=== PATIENT | female | born 1945 | race Caucasian/White ===

== ENCOUNTER 2019-11-05 08:44 | Day surgery (SDC) | payer MEDICARE, MEDICAID, SELFPAY ==
[2019-11-04 10:51] VITALS: BMI 31.3
--- NOTE | 2019-11-05 08:53 | ANES.PREANE2 ---
Pre-Anesthetic Assessment Pre-Anesthetic Assessment: Height/Weight: Height 1.37 m Weight 58.967 kg Preop Diagnosis: Colon cancer Proposed Procedure: Operation Date: 11/05/19 10:30 Proposed Procedures p Colonoscopy(Not Applicable) - Steven Cotton MD Familial anesthetic complications: None Was Beta Marino taken within 24 hours: Yes Last intake: yesterday 10 pm Social: Social History: No alcohol and No tobacco Exam: Pre-Anes Outpt Exam: alert, oriented x 3, clear to auscultation bilaterally and regular rate & rhythm Airway: Cervical ROM: WNL MP: 2 Dentition: Partials Additional comments: missing Pulmonary: Pulmonary: COPD (2 L NC at night) CV/HEM: CV/HEM: HTN and LA (Unknown when this happened) : : None reported Hepatic: Hepatic: None reported GI: GI: None reported Metabolic: Metabolic: None reported Musc/skel: Musc/skel: None reported Neuropsych: Neuropsych: CVA (Unknown time when this occured (says she passed out 5-6 years ago in her sons basement and they told her she'd had a stroke)before)) and None reported Anesthetic Plan: ASA status: 3 Anesthesia: MAC Risk of > 500 ml blood loss (7ml/kg in children): No PFSH Anesthesia PFSH: Social History (Updated 11/04/19 @ 10:10 by Eleanor Banda) Smoking and tobacco status: never smoked Alcohol intake: never Substance/Drug Use: never Data Anesthesia Cardiac Studies: No Data to Display
--- NOTE | 2019-11-05 09:11 | P.HP_ITS ---
Same Day Surgery H&P Indication for Procedure/HPI DATE OF PROCEDURE: November 05, 2019 CHIEF COMPLAINT/INDICATIONFOR SURGICAL PROCEDURE: Personal history of colon cancer PREOP DIAGNOSIS: Colon cancer PLANNED PROCEDRUE: Operation Date: 11/05/19 10:30 Proposed Procedures p Colonoscopy(Not Applicable) - Steven Cotton MD Medications/Allergies* Home Medications Medication Instructions Recorded Confirmed Type alendronate 70 mg PO Q7D 11/04/19 11/04/19 History amlodipine 5 mg PO DAILY 11/04/19 11/04/19 History citalopram 20 mg PO DAILY 11/04/19 11/04/19 History doxepin 50 mg PO DAILY 11/04/19 11/04/19 History metoprolol succinate 50 mg PO DAILY 11/04/19 11/04/19 History nabumetone 750 mg PO BID 11/04/19 11/04/19 History oxybutynin chloride 5 mg PO BID 11/04/19 11/04/19 History ranitidine HCl 150 mg PO BID 11/04/19 11/04/19 History roflumilast [Daliresp] 500 mcg PO DAILY 11/04/19 11/04/19 History ropinirole 0.5 mg PO BEDTIME 11/04/19 11/04/19 History trazodone 150 mg PO BEDTIME 11/04/19 11/04/19 History triamcinolone acetonide 1 applic TOPICAL DAILY 11/04/19 11/04/19 History umeclidinium-vilanterol [Anoro 1 inh INHALATION BID 11/04/19 11/04/19 History Ellipta] Allergies/Adverse Reactions Allergy/AdvReac Type Severity Reaction Status Date / Time tetanus toxoid, adsorbed Allergy Unknown Verified 11/04/19 09:56 Pertinent History/Comorbid Conditions* Social History Smoking and tobacco status: never smoked Alcohol intake: never Substance/Drug Use: never Pertinent Exam Findings alert, oriented x 3, clear to auscultation bilaterally, regular rate & rhythm, operative site marked and procedure specific exam findings Recommendations Surgery/Procedure today Coding Level of Care Code Acute Employment Evaluator/Case Manager for Ann Plascencia
[2019-11-05 09:33] VITALS: BP 170/130; PULSE 125; RESP 22; TEMP 36.8; O2SAT 97
--- NOTE | 2019-11-05 09:38 | ECG_ITS ---
Measurements Intervals [place] Rate: 112 P: VT: 0 QRS: 75 QRSD: 153 T: -3 QT: 329 QTc: 449 ATRIAL FIBRILLATION WITH RAPID VENTRICULAR RESPONSE WITH ABERRANT CONDUCTION OR PALLAVI VENTRICULAR PREMATURE COMPLEXES RIGHT BUNDLE BRANCH BLOCK [120+ ms QRS DURATION, UPRIGHT V1, 40+ ms S IN I/ I/aVL/V4/V5/V6] No previous ECG available for comparison Electronically Signed On 11-05-2019 14:15:53 CLINICAL NUTRITIONIST by Miguelito Petty M.D. [email or web address]
[2019-11-05 09:42] VITALS: BP 154/91; PULSE 104; O2SAT 97
[2019-11-05] MEDS: sodium chloride 0.9% 1,000 ML 30 ML (09:42)
[2019-11-05] MEDS: labetalol 5 mg/mL SDV 20mL IVP (10:03)
[2019-11-05 10:10] VITALS: BP 149/104; PULSE 97
[2019-11-05 10:37] VITALS: BP 131/99; PULSE 106; RESP 16; TEMP 36.2; O2SAT 96
[2019-11-05 10:48] VITALS: BP 124/75; PULSE 101; RESP 18; O2SAT 97
[2019-11-05] MEDS: metoprolol succinate ER (24 HR) 50 mg Tablet PO (11:07)
[2019-11-05 11:09] VITALS: BP 116/76; PULSE 86; RESP 18; O2SAT 100
== END 2019-11-05 11:43 | disposition home or self-care (01) ==
PROVIDERS: Family Provider Family Medicine; PCP Urology; Visit Provider Internal Medicine
PROC: 0DJD8ZZ Inspection of Lower Intestinal Tract, Via Natural or Artificial Opening Endoscopic (ICD-10-PCS; CPT 45378; principal; 2019-11-05 10:30)
DX: Z85.038 Personal history of other malignant neoplasm of large intestine (principal); D12.3 Benign neoplasm of transverse colon; K63.89 Other specified diseases of intestine; K57.30 Diverticulosis of large intestine without perforation or abscess without bleeding; J44.9 Chronic obstructive pulmonary disease, unspecified; I10 Essential (primary) hypertension; I25.2 Old myocardial infarction; Z86.73 Personal history of transient ischemic attack (TIA), and cerebral infarction without residual deficits
CPT/HCPCS: 12345; 45380; 88305; 93005; J2704; J3490; J7030

== ENCOUNTER 2019-11-15 14:34 | Outpatient (CLI) | payer MEDICARE, MEDICAID, SELFPAY ==
--- NOTE | 2019-11-15 | XR_ITS ---
WS: [id number] RIGHT KNEE: 3 VIEW(S) TECHNIQUE: AP, oblique(s) and lateral. HISTORY: Chronic knee pain. COMPARISON: 11/23/2018 No fracture or dislocation. Mild valgus deformity at the knee joint. Moderate to severe tricompartment osteoarthritis. Joint spac e narrowing or osteophytes. No erosions. No joint effusion. Extensive arterial calcifications. XR/XR knee RT 3V* [id number] IMPRESSION: 1. Tricompartment moderate to severe osteoarthritis. No progression since 11/23. 2. Osteopenia.
--- NOTE | 2019-11-15 | XR_ITS ---
WS: [id number] Upright AP knees. HISTORY: Knee pain. COMPARISON: 11/23/2018. Moderate narrowing of the medial lateral compartment of the RIGHT knee. Cortical thickening involving the proximal tibia may be from an old fracture with healing. No acute injury. Mild valgus deformity. XR/[place] [id number] IMPRESSION: Moderate to severe joint space narrowing medial and lateral compartments of the RIGHT knee.
== END 2019-11-15 14:35 | disposition home or self-care (01) ==
LOC: RADOUTREAD 11-16 07:27
PROVIDERS: Family Provider Family Medicine; PCP Urology; Visit Provider Physician Assistant
DX: Z01.89 Encounter for other specified special examinations (principal)

== ENCOUNTER 2020-04-26 11:45 | Outpatient (CLI) | payer MEDICARE, MEDICAID, SELFPAY ==
--- NOTE | 2020-04-26 11:54 | MM_ITS ---
WS: [id number] BILATERAL DIGITAL SCREENING MAMMOGRAPHY WITH CAD CLINICAL INFORMATION: SCREENING HISTORY: Screening mammogram. No current complaints. COMPARISON: TECHNIQUE: Bilateral CC and MLO views. FINDINGS: History of bilateral breast reduction. Scattered fibroglandular densities bilaterally. No suspicious focal mass, asymmetry, calcifications, or architectural distortion. No evidence of malignancy. Vascular calcifications. Stable 6 mm nodule r ight breast unchanged. MM/[id number] IMPRESSION: BI-RADS: 2-Benign FOLLOW UP: 1 Year Follow-up Recommend return to annual screening mammography.
== END 2020-04-26 11:46 | disposition home or self-care (01) ==
LOC: RADSHAW 11:49
PROVIDERS: PCP Physician Assistant; Visit Provider Physician Assistant
DX: Z12.31 Encounter for screening mammogram for malignant neoplasm of breast (principal)
CPT/HCPCS: 77067

== ENCOUNTER → 2021-01-15 13:48 | Outpatient (BNVA) | payer MEDICARE, MEDICAID, SELFPAY | PROVIDERS: PCP Physician Assistant; Visit Provider Nurse Practitioner Family | DX: N39.0 Urinary tract infection, site not specified (principal); N32.81 Overactive bladder | CPT/HCPCS: 81003 ==

== ENCOUNTER 2021-01-23 09:38 | Outpatient (CLI) | payer MEDICARE, MEDICAID, SELFPAY ==
[2021-01-23 10:07] VITALS: BMI 32.5
--- NOTE | 2021-01-23 10:14 | NMCV_ITS ---
NM brian perf SPECT r/s* [id number] Lexis Montaño Age: 75 Gender: F : 1945 Exam Date: 01/23/2021 11:06 Ordering Phys: Viet Otoole MD ([email or web address]) Technologist: RO Bose Exam Location: [facility] Indications: SOB STRESS TEST Please see separate stress test report in [facility] for full findings IMAGE PROTOCOL Rest/Stress 1 Lexiscan Day Radiopharmaceutical Dose (mCi) Administration Site Administered by Rest: Tc-99m 10.6 IV RO Bose Sestamibi Stress:Tc-99m 32.5 IV RO Muñoz Sestamibi Rest: 23-Jan-2021 60 Discovery 630 Stress: 23-Jan-2021 30 Discovery 630 0.4mg Lexiscan. Images obtained in supine and prone position. SPECT RESULTS Technical Quality: Excellent Raw Data Analysis: Normal Image Corrections: No attenuation or motion correction applied Summed Stress Score: 0 Summed Rest Score: 0 Summed Difference Score: 0 PERFUSION FINDINGS Uniform myocardial tracer uptake with no significant perfusion abnormalities FUNCTIONAL RESULTS (calculated via Gated SPECT) Stress Image LV EF (%): 86 Stress EDV (mL):50 TID: 1.04 Stress ESV (mL):7 FUNCTIONAL FINDINGS: Segmental wall motion analysis revealing no gross wall motion normalities IMPRESSIONS 1. Unremarkable myocardial perfusion imaging 2. Normal LV ejection fraction of 86%. 3. LV wall motion analysis revealing no gross wall motion normalities. 4. Normal LV volume. No significant coronary ischemia, based on the above findings Dr Viet Otoole MD FAC (Electronically Signed) Final Date: 23 Jan 2021 18:55 S
--- NOTE | 2021-01-23 10:14 | ECG_ITS ---
[facility] Test Date: 2021-01-23 Pat Name: Lexis Montaño Department: Room: Gender: Female School Health Aide: : 1945 Requested By: Viet Otoole Order Number: [id number] Teena MD: Viet Otoole M.D. Interpretive Statements NAME OF STUDY: LEXISCAN SESTAMIBI STRESS TEST INDICATION: Shortness of Breath PROCEDURE: At the baseline, the EKG revealed normal sinus rhythm with right bundle branch block pattern. The baseline blood pressure was mm Hg with a heart rate of beats/min. Lexiscan was infused over a period of 20 seconds. A total of 0.4 milligrams of Lexiscan was infused. The stress phase was continued for a total of 5 minutes. Heart rate at the end of the stress phase was 99 with a blood pressure 136/73. The EKG at the peak infusion revealed no significant changes. Sestamibi was injected 20 seconds after the Lexiscan infusion. Blood pressure at the end of the recovery phase was 131/72 with a heart rate of 86 per minute. CONCLUSION: 1. No significant EKG changes with the LexiScan infusion 2. No LexiScan induced chest pain or cardiac arrhythmia 3. Normal blood pressure and heart rate response 4. Sestamibi/sestamibi perfusion scan pending; see separate report. Electronically Signed On 01-25-2021 18:42:27 CDT by Viet Otoole M.D. [id number]
[2021-01-23] MEDS: regadenoson 0.4 Mg/5 ml Syringe IVP (11:38)
[2021-01-23 11:51] VITALS: BP 131/72; PULSE 96
== END 2021-01-23 09:39 | disposition home or self-care (01) ==
PROVIDERS: PCP Physician Assistant; Visit Provider Internal Medicine Cardiovascular Disease
DX: R06.02 Shortness of breath (principal)
CPT/HCPCS: 78452; 93017; A9500; J2785

== ENCOUNTER 2021-06-01 14:28 | Outpatient (CLI) | payer MEDICARE, MEDICAID, SELFPAY ==
--- NOTE | 2021-06-01 14:34 | MM_ITS ---
WS: [id number] BILATERAL SCREENING DIGITAL MAMMOGRAM WITH CAD HISTORY: SCREENING COMPARISON: 04/26/2020 and 12/09/2018 Bilateral CC and MLO views submitted. Computer aided detection analyzed. Breast composition: There are scattered areas of fibroglandular density. No suspicious masses, microc alcifications or architectural distortion. Stable 8 mm high density nodule 9:00 RIGHT breast. MM/[id number] IMPRESSION: BI-RADS: 2-Benign FOLLOW UP: 1 Year Follow-up
== END 2021-06-01 14:29 | disposition home or self-care (01) ==
LOC: RADSHAW 14:32
PROVIDERS: PCP Physician Assistant; Visit Provider Physician Assistant
DX: Z12.31 Encounter for screening mammogram for malignant neoplasm of breast (principal)
CPT/HCPCS: 77067

== ENCOUNTER → 2021-07-18 15:25 | Outpatient (BNVA) | payer MEDICARE, MEDICAID, SELFPAY | PROVIDERS: PCP Physician Assistant; Visit Provider Nurse Practitioner Family | DX: N39.0 Urinary tract infection, site not specified (principal); N32.81 Overactive bladder | CPT/HCPCS: 81003 ==

== ENCOUNTER 2021-09-11 10:48 | Outpatient (CLI) | payer MEDICARE, MEDICAID, SELFPAY ==
--- NOTE | 2021-09-11 10:57 | USCV_ITS ---
Lexis Montaño Age: 76 Gender: F : 1945 Exam Date: 09/11/2021 11:20 Ordering Phys: Viet Otoole MD ([email or web address]) Technologist: Valorie Llamas [place] [facility] [place]ication: SOB AND CP BP: 138 / 84 HR: 88 Rhythm: Atrial fibrillation Technical Quality: Technically difficult study MEASUREMENTS (Male / Female) Normal Values 2D ECHO LV Diastolic Diameter PLAX 3.5 cm 4.2 - 5.9 / 3.9 - 5.3 cm LV Systolic Diameter PLAX 2.8 cm IVS Diastolic Thickness 1.3 cm 0.6 - 1.0 / 0.6 - 0.9 cm IVS Systolic Thickness 2.1 cm LVPW Diastolic Thickness 1.3 cm 0.6 - 1.0 / 0.6 - 0.9 cm LVPW Systolic Thickness 1.9 cm LVOT Diameter 2.0 cm LV Ejection Fraction 2D Teich 40.9 % LV Ejection Fraction MOD 2C 54.9 % LV Ejection Fraction 2C AL 52.8 % LA Diameter 3.4 cm LA Width 3.4 cm LA Height 4.7 cm RA Width 3.6 cm RA Height 4.8 cm Aorta at Sinotubular Diameter 2.3 cm M-MODE Aortic Annulus Diameter 2.8 cm LA Ao Ratio MM 1.2 MV E Point Septal Separation 0.5 cm DOPPLER AV Peak Velocity 119.0 cm/s LVOT Peak Velocity 102.0 cm/s AV Area Cont Eq vti 2.7 cm squared AV Area Cont Eq pk 2.7 cm squared MV Peak Velocity 103.0 cm/s MV Area PHT 5.5 cm squared MV E' Velocity 54.0 cm/s Mitral E to MV E' Ratio 8.1 Mitral E to LV E' Lateral Ratio 8.2 Mitral E to LV E' Septal Ratio 8.1 TR Peak Velocity 304.0 cm/s TR Peak Gradient 37.0 mmHg TR Mean Velocity 217.2 cm/s TR Mean Gradient 21.3 mmHg TR Velocity Time Integral 74.2 cm TV Peak E Velocity 65.0 cm/s Right Atrial Pressure 3.0 mmHg Pulmonary Artery Systolic Pressu 40.0 mmHg PV Peak Velocity 106.0 cm/s RV Acceleration Time 0.1 s RV Ejection Time 0.3 s RV AcT/ET 0.3 FINDINGS Left Ventricle Normal left ventricular size and systolic function, EF 57 %. Mild left ventricular hypertrophy. No regional wall motion abnormalities. Right Ventricle The right ventricle is normal in size and function. Right Atrium Moderate increased right atrial size. Left Atrium Moderately increased left atrial size. Mitral Valve Mild mitral annular calcification. Mild mitral valve regurgitation. Aortic Valve Thickened aortic valve. Tricuspid Valve Vlhzpaoo-go-zduoto tricuspid valve regurgitation. Estimated pulmonary artery peak systolic pressure of 40 mmHg Pulmonic Valve Structurally normal pulmonic valve without significant stenosis. There is no pulmonic regurgitation. Pericardium Normal pericardium without effusion. Aorta Normal ascending aorta dimension. CONCLUSIONS Normal left ventricular size and systolic function, EF 57 %. Mild left ventricular hypertrophy. No regional wall motion abnormalities. Moderately increased left atrial size. Moderately increased right atrial size. The right ventricle is normal in size and function. Thickened aortic valve. Mild mitral annular calcification. Ocgnuqro-cq-uhthfq tricuspid valve regurgitation. Estimated pulmonary artery peak systolic pressure of 40 mmHg. There is no pericardial effusion. There are no intracardiac masses. Compared to the study from 12/30/2018, there may not be a significant change Dr Viet Otoole MD FACC (Electronically Signed) Final Date: 12 September 2021 19:12 S
== END 2021-09-11 10:49 | disposition home or self-care (01) ==
LOC: RAD 10:49
PROVIDERS: PCP Physician Assistant; Visit Provider Internal Medicine Cardiovascular Disease
DX: R06.02 Shortness of breath (principal); R07.89 Other chest pain; I08.3 Combined rheumatic disorders of mitral, aortic and tricuspid valves
CPT/HCPCS: 93306

== ENCOUNTER 2022-07-29 14:36 | Outpatient (CLI) | payer MEDICARE, MEDICAID, SELFPAY ==
--- NOTE | 2022-07-29 14:42 | MM_ITS ---
WS: [id number] BILATERAL 3D TOMOSYNTHESIS DIGITAL SCREENING MAMMOGRAPHY WITH CAD CLINICAL INFORMATION: SCREENING HISTORY: Screening mammogram. No current complaints. History of bilateral breast reduction COMPARISON: 2020 TECHNIQUE: Bilateral CC and MLO views. FINDINGS: Scattered fibroglandular densities bilaterally. Stable 6 mm ovoid nodule central RIGHT breast. No maggi picious focal mass, asymmetry, calcifications, or architectural distortion. No evidence of malignancy . Vascular calcification. MM/[id number] IMPRESSION: BI-RADS: 2-Benign FOLLOW UP: 1 Year Follow-up Recommend return to annual screening mammography.
== END 2022-07-29 14:37 | disposition home or self-care (01) ==
LOC: RAD 14:36
PROVIDERS: PCP Physician Assistant; Visit Provider Physician Assistant
DX: Z12.31 Encounter for screening mammogram for malignant neoplasm of breast (principal)
CPT/HCPCS: 77063; 77067

== ENCOUNTER → 2022-12-11 14:32 | Outpatient (BNVA) | payer MEDICARE, MEDICAID, SELFPAY | PROVIDERS: PCP Physician Assistant; Visit Provider Urology | DX: Z87.440 Personal history of urinary (tract) infections (principal); N32.81 Overactive bladder | CPT/HCPCS: 81003; 99213 ==

== ENCOUNTER → 2023-01-01 15:27 | Outpatient (BNVA) | payer MEDICARE, MEDICAID, SELFPAY | PROVIDERS: PCP Physician Assistant; Visit Provider Specialist | DX: M17.11 Unilateral primary osteoarthritis, right knee (principal); M21.061 Valgus deformity, not elsewhere classified, right knee | CPT/HCPCS: 73560; 73565; 99213 ==

== ENCOUNTER → 2023-01-22 15:17 | Outpatient (BNVA) | payer MEDICARE, MEDICAID, SELFPAY | PROVIDERS: PCP Physician Assistant; Visit Provider Specialist | DX: M17.11 Unilateral primary osteoarthritis, right knee (principal); M21.061 Valgus deformity, not elsewhere classified, right knee | CPT/HCPCS: 99214 ==

== ENCOUNTER 2023-06-06 13:32 | Emergency (ER) | payer MEDICARE, MEDICAID, SELFPAY ==
[2023-06-06 13:35] VITALS: BP 176/100; PULSE 91; RESP 16; TEMP 36.4; O2SAT 98; BMI 31.3
--- NOTE | 2023-06-06 18:12 | ED_ITS ---
HPI - Dental/Oral General: Chief complaint: Dental/Oral Stated complaint: dentist sent, infected tooth Time Seen by Provider: 06/06/23 17:59 History of Present Illness: Lexis is a pleasant 78-year-old female who presents to the emergency department with left mandibular dental infection. She reports that she has seen her dentist after doing 7 days of Augmentin. Her dentist gave her amoxicillin 875 p.o. twice daily to take for the next 10 days. After this he is planning on pulling the tooth that he believes is causing the pain in the left mandibular molar region. This morning she woke up and her left cheek was sort of puffy and it hurt to open her mouth. This has improved throughout the day. She has not noticed any fever and her facial swelling has resolved. She does not have any pain or swelling underneath her tongue or below her chin. Evidently, somebody told her to come to the emergency department to have a shot . Her dentist has already prescribed her something for pain medicine at home and has her on antibiotics. Fortunately, the dentist office is closed at this time so I could not reach out for more details. Review of Systems General: Reports: 10 or more systems reviewed and unremarkable except in HPI and below PFSH ED PFSH: Medical History Afib Arthritis Asthma Chronic back pain COPD (chronic obstructive pulmonary disease) Coronary artery disease Depression GERD (gastroesophageal reflux disease) History of restless legs syndrome History of jqmnfb-mi-gonabwjaa syndrome HTN (hypertension) Hx of basal cell carcinoma Hx of malignant neoplasm of colon Hx of myocardial infarction Hyperlipidemia Lung disease Osteoporosis Overactive bladder Recurrent UTI Surgical History History of partial surgical removal of colon 10in removed Hx of appendectomy Hx of cholecystectomy Hx of eye surgery Hx of hysterectomy one ovary spared. Performed due to heavy bleeding. Hx of knee surgery Hx of repair of rotator cuff Hx of rhinoplasty Hx of tonsillectomy Family History Mother Cancer Sister Cancer Chronic kidney disease (CKD) breast --- younger than 50 at diagnosis Grandmother Cancer Father CAD (coronary artery disease) Diabetes Brother CAD (coronary artery disease) Grandfather Diabetes Social History Smoking and tobacco status: never smoked Alcohol intake: never Substance/Drug Use: never Adopted: No Caregiver/support person: No Marital status: / Current occupational status: retired Current gender identity: Female Physical Exam Const: COMMON NORMALS: no limitations, alert and well nourished EXAM LIMITATIONS: no altered mental status HENMT: COMMON NORMALS: normocephalic, atraumatic, external ears normal and Normal external nose present HEAD & SCALP: normocephalic and atraumatic NOSE: Normal external nose present and Normal nares present EXTERNAL EAR: Yes external ears normal MOUTH: Normal oral and palatal mucosa present, lip normal, tongue normal, Normal salivary glands and ducts present and moist mucous membranes abnormal; no audible dysphonia, no drooling, no fetor hepaticus and no muffled voice TEETH & GINGIVA: Yes caries and Yes other (Dental cavities status post filling) TEETH & GINGIVA IMAGES: 1. Diffuse pain and tenderness through this region. Mild gingival erythema at the base of the teeth. No abscesses visible or palpable. OTHER: Sublingual space is normal. Salivary glands are normal to palpation. No facial swelling. No visible or palpable abscess. No submandibular or cervical adenopathy. Eye: COMMON NORMALS: EOMs intact bilaterally, conjunctivae normal and no scleral icterus CONJUNCTIVA: Yes conjunctivae normal Neck/C-Spine: GENERAL: Yes normal visual inspection and Yes trachea midline Neuro: COMMON NORMALS: moves all extremities, no focal motor deficits and no sensory deficits noted SENSORIUM/ORIENTATION: Yes alert SPEECH: speech normal Psych: COMMON NORMALS: mental status grossly normal, Normal thought process present, cooperative, normal affect and speech normal SPEECH: Yes normal speech THOUGHT PROCESS: Normal thought process present Skin: COMMON NORMALS: no rashes or lesions noted, turgor normal and no jaundice GENERAL SKIN EXAM: no rashes or lesions noted and turgor normal Course Vital Signs: Vital signs: Vital Signs Temperature 97.5 F L 06/06/23 13:35 Pulse Rate 91 06/06/23 13:35 Respiratory Rate 16 06/06/23 13:35 Blood Pressure 176/100 06/06/23 13:35 Pulse Oximetry 98 06/06/23 13:35 Oxygen Delivery Md thod Room Air 06/06/23 13:35 MDM - Dental/Oral Medical Decision Making Patient likely has a periapical abscess. It is also possible that she has some exposed nerve/dentin. She is already on amoxicillin 875 p.o. twice daily. I do not think IV antibiotics is warranted. Its not can provide any further benefit and may cause harm. We can give her a Toradol shot. No imaging is indicated at this time. Patient not in any distress unless you palpate directly over her left mandibular molars. She has [employer] and a sugary drink along with her. I will certified alcohol and drug counselor about oral care and try and reduce sugary beverages. She already has a dentist and has a planned follow-up for tooth extraction. No radiology studies performed this visit Discharge Plan Discharge Patient Disposition: Home Clinical Impression: Periapical abscess without sinus, Toothache Condition: Stable Prescriptions: Continued amoxicillin 875 mg tablet No Action ipratropium bromide 0.02 % solution 2.5 ml inhalation BID Perforomist 20 mcg/2 mL solution for nebulization 2 ml inhalation BID lisinopril 40 mg tablet 20 mg PO DAILY oxybutynin chloride 5 mg tablet 5 mg PO BID Qty: 60 6RF aspirin [Adult Aspirin Regimen] 81 mg tablet,delayed release (DR/EC) 81 mg PO DAILY betamethasone, augmented 0.05 % ointment 1 applic topical BID PRN (Reason: skin irritation) Qty: 45 1RF Rx Instructions: apply to affected area only doxepin 50 mg capsule 50 mg PO DAILY nabumetone 750 mg tablet 750 mg PO BID metoprolol succinate 50 mg tablet extended release 24 hr 50 mg PO DAILY alendronate 70 mg tablet 70 mg PO Q7D amlodipine 5 mg tablet 5 mg PO DAILY citalopram 20 mg tablet 20 mg PO DAILY triamcinolone acetonide 0.025 % cream 1 applic TOPICAL DAILY trazodone 150 mg tablet 150 mg PO BEDTIME ropinirole 0.5 mg tablet 0.5 mg PO BEDTIME Daliresp 500 mcg tablet 500 mcg PO DAILY Discharge Orders: Discharge ED (Routine); Ordered 06/06/23 Ordered By: Keyur Brandt Referrals: Valorie Kathleen PA [Primary Care Provider] - Patient Instructions: Dental Abscess (ED), Toothache (ED), Pain Management Activity Restrictions/Additional Instructions: Please continue amoxicillin 875 mg by mouth twice daily. Avoid sugary foods such as sodas, juices, Gatorade. [place] your teeth 3 times a day and use mouthwash in between. Take a probiotic from [employer]. Alternate Tylenol and ibuprofen for pain. You may apply an ice pack to the left cheek to help. As you have noted, your dentist intends to pull the tooth. Please follow-up as scheduled. If you have facial swelling, neck swelling, fever, or worsening symptoms call your dentist or return to the ER Coding Level of Care Code ED Criminal Justice Department Chair for Ann Plascencia
[2023-06-06] MEDS: ketorolac 30 mg/mL INJ 15 MG IM (18:17)
== END 2023-06-06 18:22 | disposition home or self-care (01) ==
PROVIDERS: Emergency Provider Emergency Medicine; PCP Physician Assistant
DX: K04.7 Periapical abscess without sinus (principal); Z79.82 Long term (current) use of aspirin; J44.9 Chronic obstructive pulmonary disease, unspecified; I25.10 Atherosclerotic heart disease of native coronary artery without angina pectoris; I10 Essential (primary) hypertension; Z85.038 Personal history of other malignant neoplasm of large intestine; I25.2 Old myocardial infarction; E78.5 Hyperlipidemia, unspecified
CPT/HCPCS: 96372; 99284; J1885

== ENCOUNTER 2023-06-20 12:15 | Emergency (ER) | payer MEDICARE, MEDICAID, SELFPAY ==
[2023-06-20 12:24] VITALS: BP 189/146; PULSE 96; RESP 16; TEMP 36.7; O2SAT 95; BMI 31.3
--- NOTE | 2023-06-20 16:12 | ED_ITS ---
HPI - Dental/Oral General: Chief complaint: Dental/Oral Stated complaint: tooth pain, sent by dentist Time Seen by Provider: 06/20/23 12:47 Source: patient Mode of arrival: ambulatory Limitations: no limitations History of Present Illness: Patient presents to the emergency department today for complaints of left lower dental pain. Chart review shows patient has dealt chronically with issues in this area and has been seen and evaluated in this emergency department for the same previously. Patient has a dentist in [place]. She had previously been on Augmentin but, as the infection seem to return, was put on a 3-week course of amoxicillin. Patient states she is still on the medication. She has an appointment in 3 days to have the tooth pulled. Dentist has provided her pain medication and she indicates pain is controlled. She is concerned because she still has signs of infection. No reported difficulty swallowing or difficulty breathing. No fevers. Review of Systems General: Reports: 10 or more systems reviewed and unremarkable except in HPI and below PFSH ED PFSH: Medical History Afib Arthritis Asthma Chronic back pain COPD (chronic obstructive pulmonary disease) Coronary artery disease Depression GERD (gastroesophageal reflux disease) History of restless legs syndrome History of zemnye-fo-itzflyxzy syndrome HTN (hypertension) Hx of basal cell carcinoma Hx of malignant neoplasm of colon Hx of myocardial infarction Hyperlipidemia Lung disease Osteoporosis Overactive bladder Recurrent UTI Surgical History History of partial surgical removal of colon 10in removed Hx of appendectomy Hx of cholecystectomy Hx of eye surgery Hx of hysterectomy one ovary spared. Performed due to heavy bleeding. Hx of knee surgery Hx of repair of rotator cuff Hx of rhinoplasty Hx of tonsillectomy Family History Mother Cancer Sister Cancer Chronic kidney disease (CKD) breast --- younger than 50 at diagnosis Grandmother Cancer Father CAD (coronary artery disease) Diabetes Brother CAD (coronary artery disease) Grandfather Diabetes Social History Smoking and tobacco status: never smoked Alcohol intake: never Substance/Drug Use: never Adopted: No Caregiver/support person: No Marital status: / Current occupational status: retired Current gender identity: Female Physical Exam Const: COMMON NORMALS: no acute distress, patient oriented x3 and alert HENMT: OTHER: No signs of any significant facial swelling or redness to the face. Patient has a little bit of erythema and swelling noted in the posterior left lower jawline without signs of active draining. Patient has several capped teeth in this area. Mucous membranes are moist. Airway is patent. Eye: COMMON NORMALS: Equal, round and reactive pupils present, EOMs intact bilaterally and conjunctivae normal CONJUNCTIVA: Yes conjunctivae normal PUPIL: Yes Equal, round and reactive pupils present Neck/C-Spine: COMMON NORMALS: no JVD Lymph: LYMPHATIC: no lymphadenopathy noted Resp: COMMON NORMALS: normal respiratory effort, No retractions and No use of accessory muscles Cardio: COMMON NORMALS: no JVD and regular rate RATE: regular rate : COMMON NORMALS: Yes no CVA tenderness BLADDER/KIDNEY EXAM: Yes no CVA tenderness Back/Pelvis: COMMON NORMALS: no CVA tenderness, thoracic and lumbar spine normal to inspection and thoraco-lumbar ROM normal Extremity: COMMON NORMALS: normal to inspection, full ROM and no pedal edema Neuro: COMMON NORMALS: patient oriented x3 SENSORIUM/ORIENTATION: Yes alert Skin: COMMON NORMALS: no rashes or lesions noted and turgor normal GENERAL SKIN EXAM: no rashes or lesions noted and turgor normal Course Vital Signs: Vital signs: Vital Signs Temperature 98.1 F 06/20/23 12:24 Pulse Rate 96 06/20/23 12:24 Respiratory Rate 16 06/20/23 12:24 Blood Pressure 189/146 06/20/23 12:24 Pulse Oximetry 95 06/20/23 12:24 Oxygen Delivery Me thod Room Air 06/20/23 12:24 MDM - Dental/Oral Medical Decision Making Discussed with the patient that she is currently on appropriate antibiotic therapy and appears to be closely followed by her dentist. She has an appoi ntment in 3 days to have the tooth removed and I encouraged her to continue taking her antibiotics. As her pain seems to be controlled taking the pain medication provided by her dentist I encouraged her to continue using that as well. She should watch for fevers, difficulty swallowing or breathing. Otherwise, definitive treatment will only be achieved when she has the tooth pulled. Patient verbalized understanding and agreement to treatment plan. Differential Diagnosis Likely dental caries and toothache; Unlikely gingival abscess, dental abscess, fracture of tooth or aphthous ulcer No radiology studies performed this visit Discharge Plan Discharge Patient Disposition: Home Clinical Impression: Chronic dental infection Condition: Stable Prescriptions: New nystatin 100,000 unit/gram cream 1 applic topical BID Qty: 30 0RF No Action ipratropium bromide 0.02 % solution 2.5 ml inhalation BID Perforomist 20 mcg/2 mL solution for nebulization 2 ml inhalation BID lisinopril 40 mg tablet 20 mg PO DAILY oxybutynin chloride 5 mg tablet 5 mg PO BID Qty: 60 6RF aspirin [Adult Aspirin Regimen] 81 mg tablet,delayed release (DR/EC) 81 mg PO DAILY betamethasone, augmented 0.05 % ointment 1 applic topical BID PRN (Reason: skin irritation) Qty: 45 1RF Rx Instructions: apply to affected area only doxepin 50 mg capsule 50 mg PO DAILY nabumetone 750 mg tablet 750 mg PO BID metoprolol succinate 50 mg tablet extended release 24 hr 50 mg PO DAILY alendronate 70 mg tablet 70 mg PO Q7D amlodipine 5 mg tablet 5 mg PO DAILY citalopram 20 mg tablet 20 mg PO DAILY triamcinolone acetonide 0.025 % cream 1 applic TOPICAL DAILY trazodone 150 mg tablet 150 mg PO BEDTIME ropinirole 0.5 mg tablet 0.5 mg PO BEDTIME Daliresp 500 mcg tablet 500 mcg PO DAILY amoxicillin 875 mg tablet Discharge Orders: Discharge ED (Routine); Ordered 06/20/23 Ordered By: Mavis Scott Referrals: Valorie Kathleen PA [Primary Care Provider] - Discharge Diet: Usual diet Discharge Activity: Increase activity as tolerated Patient Instructions: Toothache (ED) Activity Restrictions/Additional Instructions: Appears you are currently on antibiotics to treat your dental infection. It appears you have been on antibiotics now for approximately 1 month. I do not think changing her antibiotics at this time will make any difference in improvement of the infection at this time but, you need to keep your upcoming appointment on Friday for the dental extraction as I think that will be the only way definitive treatment of your tooth ache and recurrent infections will be resolved. Continue to take the pain medication your dentist has given you through the weekend to help with discomfort. As we discussed, chronic use of antibiotics can cause several issues including GI upset, diarrhea, and yeast infections. As you indicated you are experiencing some discomfort in the vulvovaginal region I provided you some nystatin cream which you can apply twice a day to help combat yeast infection. Coding Level of Care Code ED Screen Repairer Crusher for Ann Plascencia
== END 2023-06-20 14:17 | disposition home or self-care (01) ==
PROVIDERS: Emergency Provider Physician Assistant; PCP Physician Assistant
DX: K04.7 Periapical abscess without sinus (principal); Z79.82 Long term (current) use of aspirin; J44.9 Chronic obstructive pulmonary disease, unspecified; I25.10 Atherosclerotic heart disease of native coronary artery without angina pectoris; Z86.73 Personal history of transient ischemic attack (TIA), and cerebral infarction without residual deficits; I10 Essential (primary) hypertension; Z85.038 Personal history of other malignant neoplasm of large intestine; I25.2 Old myocardial infarction; E78.5 Hyperlipidemia, unspecified
CPT/HCPCS: 99283

== ENCOUNTER 2023-10-15 13:14 | Outpatient (CLI) | payer MEDICARE, MEDICAID, SELFPAY ==
--- NOTE | 2023-10-15 13:23 | USCV_ITS ---
Lexis Montaño Age: 78 Gender: F : 1945 Exam Date: 10/15/2023 13:56 Ordering Phys: Valorie Kathleen Technologist: VALENTINA [place] [facility] [place] CHRONIC A FIB BP: 126 / 84 HR: 70 Rhythm: Sinus Technical Quality: Adequate MEASUREMENTS (Male / Female) Normal Values 2D ECHO LVOT Diameter 1.7 cm LV Ejection Fraction MOD 2C 63.5 % LV Ejection Fraction 2C AL 67.0 % LA Diameter 4.0 cm LA Width 3.3 cm LA Height 6.0 cm RA Width 4.0 cm RA Height 5.2 cm Aorta at Sinotubular Diameter 2.6 cm IVC Diameter 1.5 cm M-MODE Aortic Annulus Diameter 2.6 cm LA Ao Ratio MM 1.6 MV E Point Septal Separation 0.3 cm DOPPLER AV Peak Velocity 102.0 cm/s LVOT Peak Velocity 79.0 cm/s AV Area Cont Eq vti 2.0 cm squared AV Area Cont Eq pk 1.8 cm squared MV Peak Velocity 102.0 cm/s MV Area PHT 4.6 cm squared MV E' Velocity 53.5 cm/s Mitral E to MV E' Ratio 9.5 Mitral E to LV E' Lateral Ratio 9.1 Mitral E to LV E' Septal Ratio 10.1 TR Peak Velocity 249.4 cm/s TR Peak Gradient 24.9 mmHg TR Mean Velocity 243.9 cm/s TR Mean Gradient 24.0 mmHg TR Velocity Time Integral 90.4 cm TV Peak E Velocity 71.0 cm/s Right Atrial Pressure 3.0 mmHg Pulmonary Artery Systolic Pressu 27.9 mmHg PV Peak Velocity 107.0 cm/s RV Acceleration Time 0.1 s RV Ejection Time 0.3 s RV AcT/ET 0.2 FINDINGS Left Ventricle Normal left ventricular size and systolic function, EF 66 %. No regional wall motion abnormalities. Right Ventricle The right ventricle is normal in size and function. Right Atrium Mildly increased right atrial size. Left Atrium Moderately increased left atrial size. Mitral Valve Trace to mild mitral valve regurgitation. Aortic Valve Thickened aortic valve. Tricuspid Valve Moderate tricuspid valve regurgitation. Estimated pulmonary artery peak systolic pressure of 34 mmHg Pulmonic Valve Mild pulmonary valve regurgitation. Pericardium Normal pericardium without effusion. Aorta Normal ascending aorta dimension. IVC Normal inferior vena cava. CONCLUSIONS Normal left ventricular size and systolic function, EF 66 %. No regional wall motion abnormalities. Moderately increased left atrial size. Mildly increased right atrial size. Trace to mild mitral valve regurgitation. Thickened aortic valve. Moderate tricuspid valve regurgitation. Estimated pulmonary artery peak systolic pressure of 34 mmHg. Mild pulmonary valve regurgitation. There is no pericardial effusion. There are no intracardiac masses. Compared to the study from 09/11/2021, there may not be a significant change Dr Viet Otoole MD [facility] (Electronically Signed) Final Date: 02 November 2023 21:49 S
== END 2023-10-15 13:15 | disposition home or self-care (01) ==
LOC: RAD 13:15
PROVIDERS: PCP Physician Assistant; Visit Provider Family Medicine
DX: I48.20 Chronic atrial fibrillation, unspecified (principal); I08.8 Other rheumatic multiple valve diseases
CPT/HCPCS: 93306

== ENCOUNTER 2023-11-27 16:41 | Inpatient (IN) | payer MEDICARE, MEDICAID, SELFPAY ==
[2023-11-27] VITALS (11 sets, daily range): BP systolic 129–163; BP diastolic 73–121; PULSE 81–122; RESP 14–18; TEMP 36.3–37.1; O2SAT 90–98; BMI 31.3
--- NOTE | 2023-11-27 16:51 | XRR_ITS ---
PROCEDURE INFORMATION: Exam: XR Right Hip Exam date and time: 11/27/2023 5:24 PM Age: 78 years old Clinical indication: Injury or trauma; Fall; Other: Unknown TECHNIQUE: Imaging protocol: Radiologic exam of the right hip. Views: 1 view hip with pelvis when performed. COMPARISON: No relevant prior studies available. FINDINGS: Bones/joints: Suspected intertrochanteric hip fracture. Soft tissues: Unremarkable. XR/XR hip RT 2-3V wo/w pel* [id number] IMPRESSION: Suspected intertrochanteric hip fracture. Would recommend CT for confirmation.
--- NOTE | 2023-11-27 17:05 | W.ED.EXTPRO ---
HPI - Extremity Problem General: Chief complaint: Extremity Injury, Lower Stated complaint: fall Time Seen by Provider: 11/27/23 16:44 Source: patient and EMS Mode of arrival: EMS Limitations: no limitations History of Present Illness: 78-year-old female who states that she tripped and fell just prior to arrival. States she landed on her right hip has right hip pain. She denies really any pain elsewhere she rates the pain in her hip a 7 out of 10 is much worse with movement improved with rest. She denies any loss of consciousness. Associated symptoms: Deny chest pain, fever(s) or rash Review of Systems Const: Denies: fever(s) or chills ENMT: Denies: throat pain or dental pain Card: Denies: chest pain Resp: Denies: dyspnea GI: Denies: abdominal pain, nausea, vomiting or diarrhea Musc: Reports: extremity pain; Denies: neck pain or back pain Skin/Breast: Denies: rash Neuro: Denies: headache(s) PFSH ED PFSH: Medical History History of restless legs syndrome Afib Depression History of lkyqgs-wr-nozgihpmu syndrome Osteoporosis COPD (chronic obstructive pulmonary disease) Hyperlipidemia GERD (gastroesophageal reflux disease) Lung disease Hx of malignant neoplasm of colon Hx of basal cell carcinoma HTN (hypertension) Asthma Chronic back pain Coronary artery disease Arthritis Hx of myocardial infarction Recurrent UTI Overactive bladder Surgical History Hx of repair of rotator cuff Hx of eye surgery Hx of rhinoplasty History of partial surgical removal of colon 10in removed Hx of appendectomy Hx of cholecystectomy Hx of hysterectomy one ovary spared. Performed due to heavy bleeding. Hx of knee surgery Hx of tonsillectomy Family History Mother Cancer Sister Cancer Chronic kidney disease (CKD) breast --- younger than 50 at diagnosis Grandmother Cancer Father CAD (coronary artery disease) Diabetes Brother CAD (coronary artery disease) Grandfather Diabetes Social History Smoking and tobacco/nicotine status: never used tobacco/nicotine Alcohol intake: never Substance/Drug Use: never Adopted: No Caregiver/support person: No Marital status: / Current occupational status: retired Current gender identity: Female Physical Exam Const: COMMON NORMALS: no acute distress, patient oriented x3 and healthy appearing HENMT: COMMON NORMALS: normocephalic and atraumatic HEAD & SCALP: normocephalic and atraumatic Eye: COMMON NORMALS: Equal, round and reactive pupils present and EOMs intact bilaterally PUPIL: Yes Equal, round and reactive pupils present Neck/C-Spine: COMMON NORMALS: full ROM and supple CERVICAL SPINE: Yes cervical ROM normal and No Cervical spine tenderness Chest: COMMONS NORMALS: normal inspection of the chest Resp: COMMON NORMALS: normal respiratory effort, No retractions, No use of accessory muscles and clear to auscultation bilaterally AUSCULTATION: clear to auscultation bilaterally Cardio: COMMON NORMALS: regular rate, regular rhythm and No murmurs present (Cardio) RATE: regular rate RHYTHM: regular rhythm Extremity: NARRATIVE EXTREMITY EXAM: Tenderness noted over right hip distal pulses and sensation intact Neuro: COMMON NORMALS: patient oriented x3, moves all extremities and no focal motor deficits Psych: COMMON NORMALS: mental status grossly normal, Normal thought process present and cooperative THOUGHT PROCESS: Normal thought process present Skin: COMMON NORMALS: no rashes or lesions noted and no wounds GENERAL SKIN EXAM: no rashes or lesions noted Course Vital Signs: Vital signs: Vital Signs Temperature 98.1 F 11/27/23 16:44 Pulse Rate 85 11/27/23 16:44 Respiratory Rate 16 11/27/23 16:44 Blood Pressure 155/89 11/27/23 16:44 Pulse Oximetry 94 11/27/23 16:44 Oxygen Delivery Me thod Room Air 11/27/23 16:44 MDM - Extremity (Nontraumatic) Medical Decision Making Patient presents here with a right hip fracture from a fall no other signs of injury did speak to orthopedics along with hospitalist and will admit at this time. Medical Records I reviewed the patient's medical records. Lab Data I reviewed the patient's lab results. All radiology interpretation(s) finalized by discharge Discharge Plan Discharge Patient Disposition: Admitted As Inpatient Clinical Impression: Fracture of hip Condition: Stable Prescriptions: No Action ipratropium bromide 0.02 % solution 2.5 ml inhalation BID Perforomist 20 mcg/2 mL solution for nebulization 2 ml inhalation BID lisinopril 40 mg tablet 20 mg PO DAILY oxybutynin chloride 5 mg tablet 5 mg PO BID Qty: 60 6RF aspirin [Adult Aspirin Regimen] 81 mg tablet,delayed release (DR/EC) 81 mg PO DAILY betamethasone, augmented 0.05 % ointment 1 applic topical BID PRN (Reason: skin irritation) Qty: 45 1RF Rx Instructions: apply to affected area only doxepin 50 mg capsule 50 mg PO DAILY nabumetone 750 mg tablet 750 mg PO BID metoprolol succinate 50 mg tablet extended release 24 hr 50 mg PO DAILY alendronate 70 mg tablet 70 mg PO Q7D amlodipine 5 mg tablet 5 mg PO DAILY citalopram 20 mg tablet 20 mg PO DAILY triamcinolone acetonide 0.025 % cream 1 applic TOPICAL DAILY trazodone 150 mg tablet 150 mg PO BEDTIME ropinirole 0.5 mg tablet 0.5 mg PO BEDTIME Daliresp 500 mcg tablet 500 mcg PO DAILY amoxicillin 875 mg tablet nystatin 100,000 unit/gram cream 1 applic topical BID Qty: 30 0RF Referrals: Valorie Kathleen PA [Primary Care Provider] - Coding Level of Care Code ED Medical Research Scientist for Ann Plascencia
--- NOTE | 2023-11-27 18:21 | ANES.PREANE2 ---
Pre-Anesthetic Assessment Height/Weight: Height 1.37 m Weight 58.967 kg Temp Pulse Resp BP Pulse Ox O2 Del Method 98.1 F 85 16 155/89 94 Room Air 11/27/23 16:44 11/27/23 16:44 11/27/23 16:44 11/27/23 16:44 11/27/23 16:44 11/27/23 16:44 Familial anesthetic complications: None Was Beta Marino taken within 24 hours: Yes Was Clonidine taken within 24 hours: N/A Last intake: > 8 hrs Social No alcohol and No tobacco Exam alert, oriented x 3, clear to auscultation bilaterally and regular rate & rhythm Airway Mallampati: Class II Dentition: caps CV/HEM Atrial Fibrillation, Coronary Artery Disease (medically treated) and Hypertension Echo CONCLUSIONS Normal left ventricular size and systolic function, EF 66 %. No regional wall motion abnormalities. Moderately increased left atrial size. Mildly increased right atrial size. Trace to mild mitral valve regurgitation. Thickened aortic valve. Moderate tricuspid valve regurgitation. Estimated pulmonary artery peak systolic pressure of 34 mmHg. Mild pulmonary valve regurgitation. There is no pericardial effusion. There are no intracardiac masses. Compared to the study from 09/11/2021, there may not be a significant change Anesthetic Plan ASA status: 3 Anesthesia: General Risk of > 500 ml blood loss (7ml/kg in children): No Medications/Allergies Home Medications Medication Instructions Recorded Confirmed Last Taken Type alendronate 70 mg tablet 70 mg PO Q7D 11/04/19 02/13/23 11/02/19 History amlodipine 5 mg tablet 5 mg PO DAILY 11/04/19 02/13/23 11/05/19 History citalopram 20 mg tablet 20 mg PO DAILY 11/04/19 02/13/23 11/04/19 History doxepin 50 mg capsule 50 mg PO DAILY 11/04/19 02/13/23 11/04/19 History metoprolol succinate 50 mg 50 mg PO DAILY 11/04/19 02/13/23 11/04/19 09:00 History tablet,extended release 24 hr nabumetone 750 mg tablet 750 mg PO BID 11/04/19 02/13/23 11/04/19 History roflumilast 500 mcg tablet 500 mcg PO DAILY 11/04/19 02/13/23 11/04/19 History (Daliresp) ropinirole 0.5 mg tablet 0.5 mg PO BEDTIME 11/04/19 02/13/23 11/04/19 History trazodone 150 mg tablet 150 mg PO BEDTIME 11/04/19 02/13/23 11/04/19 History triamcinolone acetonide 0.025 % 1 applic topical DAILY 11/04/19 02/13/23 11/04/19 History topical cream aspirin 81 mg tablet,delayed 81 mg PO DAILY 12/14/20 02/13/23 Unknown History release (Adult Aspirin Regimen) formoterol fumarate 20 mcg/2 mL 2 ml inhalation BID 01/04/21 02/13/23 Unknown History solution for nebulization (Perforomist) ipratropium bromide 0.02 % 2.5 ml inhalation BID 01/04/21 02/13/23 Unknown History solution for inhalation lisinopril 40 mg tablet 20 mg PO DAILY 01/04/21 02/13/23 Unknown History oxybutynin chloride 5 mg tablet 5 mg PO BID #60 tabs 01/15/21 02/13/23 Unknown Rx betamethasone, augmented 0.05 % 1 applic topical BID PRN skin 01/07/23 02/13/23 Unknown Rx topical ointment irritation #45 grams amoxicillin 875 mg tablet mg 06/06/23 06/06/23 Unknown History nystatin 100,000 unit/gram topical 1 applic topical BID #30 grams 06/20/23 Unknown Rx cream Allergies Allergy/AdvReac Type Severity Reaction Status Date / Time tetanus toxoid, adsorbed Allergy Unknown Verified 11/27/23 16:48 PFS Anesthesia Medical History History of restless legs syndrome Afib Depression History of dzqhct-yg-cmeiqpwlg syndrome Osteoporosis COPD (chronic obstructive pulmonary disease) Hyperlipidemia GERD (gastroesophageal reflux disease) Lung disease Hx of malignant neoplasm of colon Hx of basal cell carcinoma HTN (hypertension) Asthma Chronic back pain Coronary artery disease Arthritis Hx of myocardial infarction Recurrent UTI Overactive bladder Surgical History Hx of repair of rotator cuff Hx of eye surgery Hx of rhinoplasty History of partial surgical removal of colon 10in removed Hx of appendectomy Hx of cholecystectomy Hx of hysterectomy one ovary spared. Performed due to heavy bleeding. Hx of knee surgery Hx of tonsillectomy Family History Mother Cancer Sister Cancer Chronic kidney disease (CKD) breast --- younger than 50 at diagnosis Grandmother Cancer Father CAD (coronary artery disease) Diabetes Brother CAD (coronary artery disease) Grandfather Diabetes Social History Smoking and tobacco/nicotine status: never used tobacco/nicotine Alcohol intake: never Substance/Drug Use: never Adopted: No Caregiver/support person: No Marital status: / Current occupational status: retired Current gender identity: Female Data Anesthesia Cardiac Studies: Echocardiogram 10/15/23 Sestamibi Stress Test (Cardiology) 01/23/21
[2023-11-27] MEDS: gabapentin 300 mg Capsule PO (18:37)
[2023-11-27] MEDS: CELEcoxib 200 mg Capsule 400 MG PO (18:38)
--- NOTE | 2023-11-27 18:41 | P.HP_ITS ---
Providers/Chief Complaint 2 Primary Care Provider: Valorie Kathleen Chief Complaint: fall History of Present Illness Lexis Montaño is a 78 year old female atrial fibrillation, not on anticoagulation, history of COPD, asthma, depression, GERD, hypertension, hyperlipidemia, who presents [facility] for fall, patient tells me that she lives at home by herself, she tells me that she has a loose fitting shoe, when she stepped out of the elevator, she tripped on her shoe, and fell, no significant head trauma, no loss of consciousness, patient was diagnosed with a hip fracture, she is adamant that she does not take a blood thinner for atrial fibrillation, she takes aspirin and she has not taken the aspirin in a few days, denies any any chest pain, no palpitations, no shortness of breath no history of CAD, no history of stenting, no history of stroke, no history of diabetes, denies a history of smoking Review of Systems 2 Card: Denies: chest pain Resp: Denies: dyspnea GI: Denies: abdominal pain : Denies: flank pain Neuro: Denies: headache(s) Medications/Allergies Home Medications Medication Instructions Recorded Confirmed Last Taken Type alendronate 70 mg tablet 70 mg PO Q7D 11/04/19 02/13/23 11/02/19 History amlodipine 5 mg tablet 5 mg PO DAILY 11/04/19 02/13/23 11/05/19 History citalopram 20 mg tablet 20 mg PO DAILY 11/04/19 02/13/23 11/04/19 History doxepin 50 mg capsule 50 mg PO DAILY 11/04/19 02/13/23 11/04/19 History metoprolol succinate 50 mg 50 mg PO DAILY 11/04/19 02/13/23 11/04/19 09:00 History tablet,extended release 24 hr nabumetone 750 mg tablet 750 mg PO BID 11/04/19 02/13/23 11/04/19 History roflumilast 500 mcg tablet 500 mcg PO DAILY 11/04/19 02/13/23 11/04/19 History (Daliresp) ropinirole 0.5 mg tablet 0.5 mg PO BEDTIME 11/04/19 02/13/23 11/04/19 History trazodone 150 mg tablet 150 mg PO BEDTIME 11/04/19 02/13/23 11/04/19 History triamcinolone acetonide 0.025 % 1 applic topical DAILY 11/04/19 02/13/23 11/04/19 History topical cream aspirin 81 mg tablet,delayed 81 mg PO DAILY 12/14/20 02/13/23 Unknown History release (Adult Aspirin Regimen) formoterol fumarate 20 mcg/2 mL 2 ml inhalation BID 01/04/21 02/13/23 Unknown History solution for nebulization (Perforomist) ipratropium bromide 0.02 % 2.5 ml inhalation BID 01/04/21 02/13/23 Unknown History solution for inhalation lisinopril 40 mg tablet 20 mg PO DAILY 01/04/21 02/13/23 Unknown History oxybutynin chloride 5 mg tablet 5 mg PO BID #60 tabs 01/15/21 02/13/23 Unknown Rx betamethasone, augmented 0.05 % 1 applic topical BID PRN skin 01/07/23 02/13/23 Unknown Rx topical ointment irritation #45 grams amoxicillin 875 mg tablet mg 06/06/23 06/06/23 Unknown History nystatin 100,000 unit/gram topical 1 applic topical BID #30 grams 06/20/23 Unknown Rx cream Allergies Allergy/AdvReac Type Severity Reaction Status Date / Time tetanus toxoid, adsorbed Allergy Unknown Verified 11/27/23 16:48 PFSH Acute 2 PFSH: Medical History (Updated 11/27/23 @ 18:45 by Hesham Mark MD) History of restless legs syndrome Afib Depression History of qkderb-pl-wyoknvkiv syndrome Osteoporosis COPD (chronic obstructive pulmonary disease) Hyperlipidemia GERD (gastroesophageal reflux disease) Lung disease Hx of malignant neoplasm of colon Hx of basal cell carcinoma HTN (hypertension) Asthma Chronic back pain Coronary artery disease Arthritis Hx of myocardial infarction Recurrent UTI Overactive bladder Surgical History Hx of repair of rotator cuff Hx of eye surgery Hx of rhinoplasty History of partial surgical removal of colon 10in removed Hx of appendectomy Hx of cholecystectomy Hx of hysterectomy one ovary spared. Performed due to heavy bleeding. Hx of knee surgery Hx of tonsillectomy Family History Mother Cancer Sister Cancer Chronic kidney disease (CKD) breast --- younger than 50 at diagnosis Grandmother Cancer Father CAD (coronary artery disease) Diabetes Brother CAD (coronary artery disease) Grandfather Diabetes Social History Smoking and tobacco/nicotine status: never used tobacco/nicotine Alcohol intake: never Substance/Drug Use: never Adopted: No Caregiver/support person: No Marital status: / Current occupational status: retired Current gender identity: Female Vitals/I&O/Wt Last Vital Signs Temp 98.1 F 11/27/23 16:44 Pulse 85 11/27/23 16:44 Resp 16 11/27/23 16:44 BP 155/89 11/27/23 16:44 Pulse Ox 94 11/27/23 16:44 O2 Del Method Room Air 11/27/23 16:44 Weight last 48 hrs Weight 58.967 kg Physical Exam 2 Const: COMMON NORMALS: no acute distress and patient oriented x3 Eye: COMMON NORMALS: Equal, round and reactive pupils present and EOMs intact bilaterally Resp: COMMON NORMALS: normal respiratory effort, No retractions, No use of accessory muscles and clear to auscultation bilaterally AUSCULTATION: clear to auscultation bilaterally Cardio: COMMON NORMALS: regular rate, regular rhythm, S1 normal heart sound present and S2 normal heart sound present RATE: regular rate RHYTHM: r egular rhythm HEART SOUNDS: S1 normal heart sound present and S2 normal heart sound present GI: COMMON NORMALS: Normal to inspection, nondistended, normoactive bowel sounds present, Soft to palpation and non-tender Extremity: COMMON NORMALS: no pedal edema Neuro: COMMON NORMALS: patient oriented x3 and CN's II-XII intact bilaterally Psych: COMMON NORMALS: mental status grossly normal Data 11/27/23 18:27 11/27/23 18:27 A&P Assessment and plan (1) Fracture of hip: Qualifiers: Encounter type: initial encounter Fracture type: closed Laterality: r ight Qualified Code(s): S72.001A - Fracture of unspecified part of neck of right femur, initial encounter for closed fracture (2) Benign essential hypertension, age 0-18: (3) Overactive bladder: (4) Recurrent UTI: (5) Dyslipidemia (high LDL; low HDL): (6) Afib: Plan Hip fracture -Pain control, and anticoagulation as per orthopedic team -Currently n.p.o., for surgical intervention today -Full code -scd for DVT prophylaxis -Atrial fibrillation, not on anticoagulation Hypertension, hold lisinopril, hold metoprolol History of COPD, Follow blood work, UA Attestations 2 Medical Necessity Statement*: Patient requires hospitalization, inpatient, greater than 2 minutes, for hip fracture Diagnoses Fracture of hip S72.001A Encounter type: initial encounter Fracture type: closed Laterality: right Benign essential hypertension, age 0-18 I10 Overactive bladder N32.81 Recurrent UTI N39.0 Dyslipidemia (high LDL; low HDL) E78.5 Afib I48.91
[2023-11-27 18:43] LABS: Basophils % 0.2 %; Eosinophils % 0.1 %; Hematocrit 42.8 % (36-47); Lymphocytes % 5.5 %; Mean Corpuscular HGB Conc 33.2 g/dL (30-55); Mean Corpuscular Hemoglobin 31.3 pg (27-33); Mean Corpuscular Volume 94.3 fl (85-98); Mean Platelet Volume 10.4 fL (7.4-10.4); Monocytes # 1.1 10^3/uL (0.2-0.9); Neutrophils % 87.5 %; Nucleated Red Blood Cells % 0 %; Platelet Count 178 10^3/cmm (157-399); Red Blood Count 4.54 10^6/uL (3.85-5.65); Red Cell Distribution Width 14.6 % (12.1-15.1)
[2023-11-27 18:48] LABS: INR 1.02 (0.8-1.2)
[2023-11-27 19:02] LABS: Add Urine Microscopic? NO; Charge for UA Resulting for Rev
[2023-11-27 19:02] LABS: Alanine Aminotransferase 18 U/L (0-33); Albumin Level 4.3 g/dL (3.5-5.2); Alkaline Phosphatase 87 U/L (35-105); Anion Gap 14.9 (5-19); Aspartate Amino Transferase 20 U/L (0-32); Blood Urea Nitrogen 22 mg/dL (8-23); Calcium 8.9 mg/dL (8.5-10.5); Carbon Dioxide 24 mmol/L (22-29); Chloride 106 mmol/L (98-107); Creatinine Clr Calc Pharmacy 54.8209; Glucose 143 mg/dL (65-115); Osmolality Calculated 298 mOsm/kg (285-295); Potassium 3.9 mmol/L (3.5-5.1); Sodium 141 mmol/L (136-145); Total Bilirubin 0.6 mg/dL (0.15-1.2); Total Protein 7.3 g/dL (6.6-8.7)
[2023-11-27 19:05] LABS: Lactic Sepsis W/Reflex 1.5 mmol/L (0.5-2.2)
--- NOTE | 2023-11-27 19:05 | P.CONIM_ITS ---
Providers/Reason For Consult 2 Consulting Phys[facility]/Specialty*: [facility] June Bravo MD -- orthopedics Reason for Consult*: Right hip intertrochanteric fracture of femur. Requiring surgical intervention. Attending Physician: Hesham Mark MD Primary Care Provider: Valorie Kathleen History of Present Illness History of Present Illness Lexis Montaño is a 78 year old female presents to [facility] through the emergency department, after trip and fall earlier this evening. Patient states that she has had significant pain in the right hip since her fall. She did not plan to come into the emergency department and delayed her evaluation as she thought she had just strained the hip . Pain became more severe and she presented for further evaluation. Denies pain location anywhere else. Denies loss of consciousness. Patient appears to be stable, with no acute medical concerns at this time. She denies any shortness of breath, chest pain, headache, lightheadedness, nausea, vomiting, blurred vision or other acute variations from normal. She does have complaints of right hip pain however, this is mild as long as there is no range of motion to the right hip. Review of Systems 2 Const: Denies: fever(s) or chills ENMT: Denies: throat pain or dental pain Card: Denies: chest pain Resp: Denies: dyspnea GI: Denies: abdominal pain, nausea, vomiting or diarrhea Musc: Reports: extremity pain, joint pain and limited range of motion; Denies: neck pain, back pain, joint redness or joint warmth Skin/Breast: Denies: rash Neuro: Denies: headache(s) Medications/Allergies Home Medications Medication Instructions Recorded Confirmed Last Taken Type alendronate 70 mg tablet 70 mg PO Q7D 11/04/19 02/13/23 11/02/19 History amlodipine 5 mg tablet 5 mg PO DAILY 11/04/19 02/13/23 11/05/19 History citalopram 20 mg tablet 20 mg PO DAILY 11/04/19 02/13/23 11/04/19 History doxepin 50 mg capsule 50 mg PO DAILY 11/04/19 02/13/23 11/04/19 History metoprolol succinate 50 mg 50 mg PO DAILY 11/04/19 02/13/23 11/04/19 09:00 History tablet,extended release 24 hr nabumetone 750 mg tablet 750 mg PO BID 11/04/19 02/13/23 11/04/19 History roflumilast 500 mcg tablet 500 mcg PO DAILY 11/04/19 02/13/23 11/04/19 History (Daliresp) ropinirole 0.5 mg tablet 0.5 mg PO BEDTIME 11/04/19 02/13/23 11/04/19 History trazodone 150 mg tablet 150 mg PO BEDTIME 11/04/19 02/13/23 11/04/19 History triamcinolone acetonide 0.025 % 1 applic topical DAILY 11/04/19 02/13/23 11/04/19 History topical cream aspirin 81 mg tablet,delayed 81 mg PO DAILY 12/14/20 02/13/23 Unknown History release (Adult Aspirin Regimen) formoterol fumarate 20 mcg/2 mL 2 ml inhalation BID 01/04/21 02/13/23 Unknown History solution for nebulization (Perforomist) ipratropium bromide 0.02 % 2.5 ml inhalation BID 01/04/21 02/13/23 Unknown History solution for inhalation lisinopril 40 mg tablet 20 mg PO DAILY 01/04/21 02/13/23 Unknown History oxybutynin chloride 5 mg tablet 5 mg PO BID #60 tabs 01/15/21 02/13/23 Unknown Rx betamethasone, augmented 0.05 % 1 applic topical BID PRN skin 01/07/23 02/13/23 Unknown Rx topical ointment irritation #45 grams amoxicillin 875 mg tablet mg 06/06/23 06/06/23 Unknown History nystatin 100,000 unit/gram topical 1 applic topical BID #30 grams 06/20/23 Unknown Rx cream Allergies Allergy/AdvReac Type Severity Reaction Status Date / Time tetanus toxoid, adsorbed Allergy Unknown Verified 11/27/23 16:48 PFSH Acute 2 PFSH: Medical History (Updated 11/27/23 @ 19:21 by JODI Saleem) Fall at home Closed intertrochanteric fracture of right hip History of restless legs syndrome Afib Depression History of krrzna-pq-iwqvxdxnv syndrome Osteoporosis COPD (chronic obstructive pulmonary disease) Hyperlipidemia GERD (gastroesophageal reflux disease) Lung disease Hx of malignant neoplasm of colon Hx of basal cell carcinoma HTN (hypertension) Asthma Chronic back pain Coronary artery disease Arthritis Hx of myocardial infarction Recurrent UTI Overactive bladder Surgical History Hx of repair of rotator cuff Hx of eye surgery Hx of rhinoplasty History of partial surgical removal of colon 10in removed Hx of appendectomy Hx of cholecystectomy Hx of hysterectomy one ovary spared. Performed due to heavy bleeding. Hx of knee surgery Hx of tonsillectomy Family History Mother Cancer Sister Cancer Chronic kidney disease (CKD) breast --- younger than 50 at diagnosis Grandmother Cancer Father CAD (coronary artery disease) Diabetes Brother CAD (coronary artery disease) Grandfather Diabetes Social History Smoking and tobacco/nicotine status: never used tobacco/nicotine Alcohol intake: never Substance/Drug Use: never Adopted: No Caregiver/support person: No Marital status: / Current occupational status: retired Current gender identity: Female Vitals/I&O/Wt Last Vital Signs Temp 98.1 F 11/27/23 16:44 Pulse 81 11/27/23 18:59 Resp 16 11/27/23 18:59 BP 155/89 11/27/23 16:44 Pulse Ox 96 11/27/23 18:59 O2 Del Method Room Air 11/27/23 18:48 Weight last 48 hrs Weight 130 lb Physical Exam 2 Const: COMMON NORMALS: no acute distress, average body habitus, patient oriented x3, no limitations, alert and well nourished GENERAL APPEARANCE: c ooperative; not anxious and not combative ORIENTATION/CONSCIOUSNESS: Yes awake, Yes oriented to person, Yes oriented to place and Yes oriented to time HENMT: COMMON NORMALS: normocephalic and atraumatic HEAD & SCALP: n ormocephalic and atraumatic Resp: COMMON NORMALS: normal respiratory effort, No retractions, No use of accessory muscles and clear to auscultation bilaterally AUSCULTATION: clear to auscultation bilaterally Cardio: COMMON NORMALS: regular rate, regular rhythm, S1 normal heart sound present and S2 normal heart sound present RATE: regular rate RHYTHM: r egular rhythm HEART SOUNDS: S1 normal heart sound present and S2 normal heart sound present Extremity: RIGHT LOWER EXTREMITY: Yes hip joint Right hip: Yes inspection (No skin breakdown or bruising noted. No deformity of hip), Yes palpation (TTP to right hip and groin), Yes ROM (Not assessed secondary to known fracture.), Yes neurovascular exam (Sensation intact to light touch distally. 2+ DP and PT pulses) and Yes other (Slight external rotation and limb length discrepancy RLE.) and Yes lower leg (No calf pain, tenderness, erythema or swelling) Neuro: COMMON NORMALS: patient oriented x3 SENSORIUM/ORIENTATION: Yes alert, Yes oriented to person, Yes oriented to place and Yes oriented to time Psych: ATTITUDE: Yes engaged Skin: COMMON NORMALS: no rashes or lesions noted, turgor normal and no jaundice GENERAL SKIN EXAM: no rashes or lesions noted and turgor normal Urinary Catheter Management: Hardy: Cath Placed During This Visit: yes Urinary Catheter Date of Insertion: 11/27/23 Urinary Catheter Time of Insertion: 18:56 Data 11/27/23 18:27 11/27/23 18:27 Xray Ortho: Radiologist's impression: Ordering Provider/Ordering MD: Angelica Garzon MD Date of Service: 11/27/23 Procedure(s): XR hip RT 2-3V wo/w pel* [id number] Accession Number(s): [id number] Report Number: [id number] PROCEDURE INFORMATION: Exam: XR Right Hip Exam date and time: 11/27/2023 5:24 PM Age: 78 years old Clinical indication: Injury or trauma; Fall; Other: Unknown TECHNIQUE: Imaging protocol: Radiologic exam of the right hip. Views: 1 view hip with pelvis when performed. COMPARISON: No relevant prior studies available. FINDINGS: Bones/joints: Suspected intertrochanteric hip fracture. Soft tissues: Unremarkable. XR/XR hip RT 2-3V wo/w pel* [id number] IMPRESSION: Suspected intertrochanteric hip fracture. Would recommend CT for confirmation. A&P Assessment and plan (1) Closed intertrochanteric fracture of right hip: Lexis is a 78-year-old, female patient, who presents to the hospital today for evaluation of hip pain after trip and fall at home earlier this evening. Patient is seen in consultation in the preoperative holding area. Patient presented with right hip pain. With physical examination there is noted external rotation and slight limb length discrepancy to the right lower extremity. There is no break in the skin, no current bruising or swelling noted. Patient is neurovascularly stable to the right lower extremity with examination. X-rays from the emergency department were reviewed and discussed at length with the patient and her . X-ray images are consistent with right femoral intertrochanteric fracture. At this time we recommend proceeding with surgical intervention for right hip open reduction internal fixation of intertrochanteric fracture. Risks versus benefits of surgery were discussed at length with the patient and her . Risks include but are not limited to, general anesthesia risk, wound healing complications, infection, failure to relieve all pain, hardware failure, nerve/blood vessel or tendon injury and failure of fracture healing. Patient and family verbalized understanding and agreement. Consents were signed in the preoperative holding area. Case was discussed with Dr. June Bravo MD my collaborating orthopedic surgeon. Patient will be taken to surgery [facility], November 27, 2023 for the above listed surgery. Patient will be admitted to hospital for further follow-up and workup and discharge planning after surgical intervention. Qualifiers: Encounter type: initial encounter Fracture alignment: nondisplaced Qualified Code(s): S72.144A - Nondisplaced intertrochanteric fracture of right femur, initial encounter for closed fracture (2) Fall at home: Qualifiers: Encounter type: initial encounter Qualified Code(s): W19.XXXA - Unspecified fall, initial encounter; Y92.009 - Unspecified place in unspecified non-institutional (private) residence as the place of occurrence of the external cause Consult Attestations 2 Medical Necessity Statement: Patient will require acute medical stay in hospital for medical stabilization and surgical management of right hip intertrochanteric fracture. There will need to be appropriate postoperative and discharge planning completed in this time. Time Spent in Patient Care: Greater than 30-minutes. Coding Level of Care Code Acute Code for Chg Fwd Diagnoses Closed nondisplaced intertrochanteric fracture of right femur, initial encounter S72.144A Encounter type: initial encounter Fracture alignment: nondisplaced Fall in home, initial encounter W19.XXXA; Y92.009 Encounter type: initial encounter
[2023-11-27 19:09] LABS: Bilirubin Urine Neg (Negative); Blood Urine Neg (Negative); Glucose Urine UA Norm (Normal); Ketones Urine Negative (Negative); Leukocyte Esterase Urine Negative (Negative); Nitrate Urine Negative (Negative); Protein Urine Neg (Negative); Specific Gravity, Urine 1.015 (1.005-1.030); Urine Appearance Clear (CLEAR); Urine Color Yellow (Yellow); Urobilinogen Urine Norm (Negative); pH Urine 6.5 (5-7)
[2023-11-27 19:15] LABS: NT Pro B Type Natriuretic Pept 1893 pg/mL (0-450)
[2023-11-27] MEDS: acetaminophen 1,000 MG/100 ML PIGGYBACK 400 MG IV (19:21)
[2023-11-27] MEDS: sodium chloride 0.9% 1,000 ML 30 ML IV (19:29)
--- NOTE | 2023-11-27 21:00 | XR_ITS ---
WS: [id number] INTRAOPERATIVE TECHNIQUE: 2 Spot fluoroscopic images for intraoperative purposes. FLUOROSCOPY TIME: 135.3 seconds CLINICAL INFORMATION: RT TFN; OR PICS FINDINGS: Intramedullary brayan and screw fixation RIGHT hip. Hardware appears in good position. Vascular calcific ation. IMPRESSION: Images obtained for intraoperative purposes.
[2023-11-27] MEDS: ceFAZolin 2,000 MG in sodium chloride 0.9% (plus) 50 ML 100 MG IV (21:14)
[2023-11-27] MEDS: ceFAZolin 1,000 mg SDV 1000 MG IRRIGATION (22:31)
[2023-11-27] MEDS: lidocaine-epi 2% PF 1:200,000 20 mL SDV XX (22:31)
[2023-11-27] MEDS: metoprolol tartrate 1 mg/1 mL SDV 5 mL 5 MG (23:29)
--- NOTE | 2023-11-27 23:50 | ANE.PACU2 ---
Inpatient post-anesthesia follow up: Airway intact: Yes Vital signs: Temperature 97.1 F Pulse Rate 95 Respiratory Rate 16 Blood Pressure 103/69 Pulse Oximetry 91 Oxygen Delivery Me thod Nasal Cannula Oxygen Flow Rate 2 Fraction of Inspir ed Oxygen Hydration adequate: Yes Nausea and vomiting: No Pain level: 1 Mental status: Baseline
[2023-11-28] VITALS (19 sets, daily range): BP systolic 88–125; BP diastolic 52–79; PULSE 76–116; RESP 14–18; TEMP 36.2–36.9; O2SAT 91–99
--- NOTE | 2023-11-28 00:24 | P.OP_ITS ---
Operative Report Date of procedure: November 28, 2023 Pre-op diagnosis: Right intertrochanteric hip fracture Post-op diagnosis: Right intertrochanteric hip fracture Procedure done: Open reduction internal fixation right intertrochanteric hip fracture Implants: Wilma gamma 3 trochanteric nail size 11 mm x 180 mm x 125 degrees, a gamma 3 lag screw size 10.5 mm x 85 mm, and a distal locking screw size 5 mm x 27.5 mm Specimens removed/disposition: None Surgeon: June Bravo MD Travel [employer] Passenger Agent: None Anesthesia: General (Intubated, ASA 3) Estimated blood loss (mL): 25 IV fluids (mL): 600 Urine output (mL): 275 Complications: None Findings: Closed right intertrochanteric hip fracture Condition: stable Disposition: PACU (Then to floor for postoperative rehabilitation and pain management) Brief History: This 78-year-old woman presented to the hospital through the emergency department after falling earlier in the day. The patient noted that she had significant pain in the right hip since her fall, but she did not plan to come to the emergency department and thought she had just strained her hip. The pain became more severe throughout the the evening, and she presented to the emergency department where she was found to have a closed intratrochanteric right hip fracture. She was seen in the preoperative area, and consents were obtained. Risks and complications were discussed and questions were answered. Procedure: Patient is brought to the operating theater. After undergoing adequate general anesthesia, intubated, ASA 3, the patient was transferred to the fracture table, positioned on the table and fluoroscopic guidance obtained throughout the surgical procedure. Prior to the commencement of the surgical procedure, a surgical pause was performed. At the time of the surgical pause, we confirmed the site and side of surgery as well as preoperative surgical markings and appropriate and timely administration of IV antibiotics, Ancef 2 g. Availability of equipment was also confirmed. Fluoroscopy was used to confirm the fracture was appropriately reduced in both AP and lateral planes. An incision was then made slightly above the greater trochanter to allow access to the greater trochanter. An awl was used to enter the greater trochanter and a guidewire was subsequently placed. Once the guidewire was confirmed to be in appropriate position in AP and lateral planes, reaming was accomplished over this to allow for the proximal diameter of the nail. Guidewire was then removed. An 11 mm x 180 mm x 125 degree gamma 3 trochanteric nail nail was placed into appropriate position with positioning being confirmed in AP and lateral planes on the x-ray. It passed without difficulty. Guidewire was then passed through the jigging system into the femoral head. We wanted to be center or slightly inferior and posterior to center. Guidewire was placed into appropriate position. Once the guidewire was in appropriate position and this position was confirmed by x-ray. This was then measured and we chose a 10.5 mm x 85 mm lag screw. We reamed to allow for the lag screw to be placed. The 85 mm lag screw was then passed into the femoral head through the trochanteric nail. This was passed uneventfully and again position was confirmed in AP and lateral planes. Compression was obtained under fluoroscopic guidance. The set screw was then placed in position, tightened completely, and subsequently backed off one-quarter turn. The construct was left in position and attention was directed distally. Cannulas were again used to determine appropriate placement for the distal screw. This was placed in position without difficulty. It was measured off of the drill. The appropriate length screw was then obtained and placed in position without difficulty. Once the screw was in position, we confirmed appropriate placement of the components, and we removed the jigging system. Attention was then directed to closure. The hip was copiously irrigated with normal saline with antibiotics. Following this it was dried and closed. Tensor fascia santiago was closed with 0 Vicryl in an interrupted fashion. Local anesthetic was infused. Subcutaneous tissues were closed with 2-0 Monocryl, and the skin was closed with a continuous 3-0 Monocryl subcuticular stitch. This was then covered with Dermabond, Steri-Strips, and OpSite. The patient was removed from the fracture table and returned to recovery in satisfactory condition. The patient will be discharged to the floor for postoperative rehabilitation and pain management. There were no specimens obtained. Related Problem List Diagnoses (1) Closed intertrochanteric fracture of right hip:
[2023-11-28] MEDS: sodium chloride 0.9% 1,000 ML 75 ML IV (00:25)
[2023-11-28] MEDS: pantoprazole 40 mg SDV IVP ×2 (00:25→23:04)
--- NOTE | 2023-11-28 00:35 | PC.NURSE ---
Trazadone not given because patient is still drowsy from anesthesia.
[2023-11-28 00:45] LABS: Estmated Average Glucose 108; Hemoglobin A1C 5.4 % (4.0-6.0)
[2023-11-28 00:46] LABS: Chol HDL Ratio 2.48 mg/dL (0.0-4.40); Cholesterol 154 mg/dL (0-200); HDL Cholesterol 62 mg/dL (60-100); LDL Cholesterol Calculated 78 mg/dL (50-129); LDL HDL Ratio 1.26 RATIO (0.00-3.22); Thyroid Stimulating Hormone 3.71 uIU/mL (0.27-4.20); Triglycerides 71 mg/dL (0-150)
[2023-11-28] MEDS: ceFAZolin 2,000 MG in sodium chloride 0.9% (plus) 50 ML 100 MG IV ×3 (01:29→17:37)
[2023-11-28 06:08] LABS: Basophils % 0.1 %; Hematocrit 36.4 % (36-47); Lymphocytes # 0.6 10^3/uL (0.8-4.8); Lymphocytes % 4.4 %; Mean Corpuscular Hemoglobin 31.9 pg (27-33); Mean Corpuscular Volume 96.8 fl (85-98); Mean Platelet Volume 11.1 fL (7.4-10.4); Monocytes # 0.3 10^3/uL (0.2-0.9); Monocytes % 2.3 %; Neutrophils % 92.5 %; Nucleated Red Blood Cells % 0 %; Platelet Count 155 10^3/cmm (157-399); Red Blood Count 3.76 10^6/uL (3.85-5.65); Red Cell Distribution Width 14.6 % (12.1-15.1); White Blood Count 13.85 10^3/uL (3.29-11.43)
[2023-11-28 06:41] LABS: Alanine Aminotransferase 60 U/L (0-33); Albumin Level 3.5 g/dL (3.5-5.2); Alkaline Phosphatase 115 U/L (35-105); Aspartate Amino Transferase 102 U/L (0-32); Blood Urea Nitrogen 22 mg/dL (8-23); Calcium 7.7 mg/dL (8.5-10.5); Carbon Dioxide 22 mmol/L (22-29); Chloride 108 mmol/L (98-107); Creatinine Clr Calc Pharmacy 60.7244; Globulin 2.4 g/dL (1.3-4.6); Glucose 137 mg/dL (65-115); Magnesium 1.8 mg/dL (1.7-2.3); Osmolality Calculated 297 mOsm/kg (285-295); Phosphorus 4.1 mg/dL (2.5-4.5); Sodium 141 mmol/L (136-145); Total Bilirubin 0.5 mg/dL (0.15-1.2); Total Protein 5.9 g/dL (6.6-8.7)
[2023-11-28] MEDS: aspirin 325 mg EC Tablet PO (08:15)
[2023-11-28] MEDS: roflumilast 500 mcg Tablet PO (08:15)
[2023-11-28] MEDS: citalopram 20 mg Tablet PO (08:15)
[2023-11-28] MEDS: doxepin 50 mg Capsule PO (08:15)
[2023-11-28] MEDS: oxyCODONE 5 mg IR Tab/Cap PO ×2 (08:15→15:15)
--- NOTE | 2023-11-28 08:52 | PC.PHAR ---
PT USES [facility]-[phone]- NURSE EDWIGE SETS MEDS UP EVERY FRIDAY.
--- NOTE | 2023-11-28 09:48 | PC.CHAP ---
Pastoral Care Encounter/Spiritual Assessment Type of Contact [] Declined bag machine adjuster visit [] Patient/Family/Request visit [] Outpatient visit [] Follow-up visit [] Physician referral [] Code/Alert [x] Routine visit [] Staff referral [] Actively dying [] Patient sleeping [] Family support [] [] Out of room [] Palliative care [] [] Receiving care in room [] Pre-surgical visit [] Trauma [] Long length of stay [] ICU visit [] Other: Relational/Emotional Strength [x] Patient feels connected with others/family/visitors/staff [] Distress [] Loneliness/isolation [] Abandonment Spirituality of Patient [x] Person of Julia [] Attends Restorationist of their Julia [x] Believes in Prayer [] Reads Bible or Adventist materials [] There are Spiritual issues to be addressed Lozenge Maker Helper Interventions [x] Prayer [x] Active listening [] Non-anxious presence [x] Spiritual/emotional support [] Crisis/trauma care [] Spiritual counseling [] Bereavement support [] Provided bereavement packet [] Provided Bible/devotional materials [] Provided toy/stuffed animal, coloring book to patient or family member [] Provided Communion [] Anointing/[place] [] Salvation [x] Completed spiritual assessment [] Other: Impact on Illness or Injury [] Angry [] Fearful [] Anxious [] Often cries [] Exhaustion [] Unable to work [] Unable to attend sikhism [] Unable to walk/stand [] Unable to read [] Unable to drive [] Unable to eat/drink [] Unable to sleep [] Unable to be with family [] Patient intubated [] Other: Summary Time spent with patient 5 min
[2023-11-28] MEDS: metoprolol succinate ER (24 HR) 50 mg Tablet PO (09:59)
[2023-11-28] MEDS: albuterol 2.5 mg/3 mL Neb INHALATION (10:08)
--- NOTE | 2023-11-28 13:14 | P.PN_ITS ---
Subjective 2 Subjective: Patient was seen this morning, she has no complaints of fevers, no chills, does report shortness of breath lower extremity edema, does have episodes of A-fib with RVR heart rates in the low 120s, resume her metoprolol, monitor heart rates on telemetry, we discussed diuresing her having PT OT work with her she is agreeable, Vitals/I&O/Wt Last Vital Signs Temp 98.0 F 11/28/23 11:46 Pulse 116 H 11/28/23 11:46 Resp 18 11/28/23 11:46 BP 125/74 11/28/23 11:46 Pulse Ox 96 11/28/23 11:46 O2 Del Method Room Air 11/28/23 11:46 O2 Flow Rate 2 11/28/23 05:00 11/27/23 11/28/23 11/28/23 22:59 06:59 14:59 Intake Total 150 / 150 384 / 534 410 / 410 Output Total 675 / 675 Balance 150 / 150 -291 / -141 410 / 410 Weight last 48 hrs Weight 65.317 kg Weight 58.967 kg Physical Exam 2 Const: COMMON NORMALS: no acute distress and patient oriented x3 Resp: COMMON NORMALS: normal respiratory effort, No retractions and No use of accessory muscles AUSCULTATION: crackles and wheezes Cardio: COMMON NORMALS: regular rate, regular rhythm, S1 normal heart sound present and S2 normal heart sound present RATE: regular rate RHYTHM: r egular rhythm HEART SOUNDS: S1 normal heart sound present and S2 normal heart sound present GI: COMMON NORMALS: Normal to inspection, nondistended, normoactive bowel sounds present and non-tender Extremity: NARRATIVE EXTREMITY EXAM: 1+ pitting edema Neuro: COMMON NORMALS: patient oriented x3 Psych: COMMON NORMALS: mental status grossly normal Urinary Catheter Management: Hardy: Cath Placed During This Visit: yes, but has since been removed by the nurse Reason for Continuing Indwelling Catheter: Decision to DC Catheter Urinary Catheter Date of Insertion: 11/27/23 Urinary Catheter Time of Insertion: 18:56 Date Urinary Catheter Removed: 11/28/23 Time Urinary Catheter Discontinued: 09:50 Data 11/28/23 04:58 11/28/23 04:58 A&P Assessment and plan (1) Fracture of hip: Qualifiers: Encounter type: initial encounter Fracture type: closed Laterality: r ight Qualified Code(s): S72.001A - Fracture of unspecified part of neck of right femur, initial encounter for closed fracture (2) Benign essential hypertension, age 0-18: (3) Overactive bladder: (4) Recurrent UTI: (5) Dyslipidemia (high LDL; low HDL): (6) Afib: (7) Fluid overload: Plan Hip fracture -Status post surgical intervention -Pain control, and anticoagulation as per orthopedic team -Cardiac diet -Full code -scd for DVT prophylaxis -Atrial fibrillation, start metoprolol 25 once daily Fluid overload, 1 dose IV Lasix Hypertension, hold metoprolol History of COPD, Follow blood work, UA Attestations 2 Medical Necessity Statement*: Patient requires hospitalization status post hip surgery now with A-fib with RVR, fluid overload, requiring inpatient monitoring Diagnoses Fracture of hip S72.001A Encounter type: initial encounter Fracture type: closed Laterality: right Benign essential hypertension, age 0-18 I10 Overactive bladder N32.81 Recurrent UTI N39.0 Dyslipidemia (high LDL; low HDL) E78.5 Afib I48.91 Fluid overload E87.70
[2023-11-28] MEDS: FUROsemide 10 mg/mL SDV 4mL 40 MG IVP (15:15)
[2023-11-28] MEDS: enoxaparin 40 mg/0.4 mL Syringe SUBCUT (15:16)
--- NOTE | 2023-11-28 15:20 | P.PN_ITS ---
Subjective 2 Subjective: Patient is seen in her room today. She appears comfortable, and she has been working with physical therapy. Her goal, is to go home where she has a caregiver. She will need another day of rehab prior to being able to do that. Medications: Reviewed: Yes Vitals/I&O/Wt Last Vital Signs Temp 98.0 F 11/28/23 11:46 Pulse 116 H 11/28/23 11:46 Resp 18 11/28/23 11:46 BP 125/74 11/28/23 11:46 Pulse Ox 96 11/28/23 11:46 O2 Del Method Room Air 11/28/23 11:46 O2 Flow Rate 2 11/28/23 05:00 11/28/23 11/28/23 11/28/23 06:59 14:59 22:59 Intake Total 384 / 534 650 / 650 Output Total 675 / 675 Balance -291 / -141 650 / 650 Weight last 48 hrs Weight 144 lb Weight 130 lb Physical Exam 2 Const: COMMON NORMALS: no acute distress, average body habitus, patient oriented x3 and alert GENERAL APPEARANCE: cooperative and comfortable O RIENTATION/CONSCIOUSNESS: Yes awake HENMT: COMMON NORMALS: normocephalic and atraumatic HEAD & SCALP: n ormocephalic and atraumatic Eye: GENERAL EYE: appearance normal, both eyes and all related structures Chest: COMMONS NORMALS: normal inspection of the chest Resp: COMMON NORMALS: normal respiratory effort EFFORT & INSPECTION: Yes able to speak in complete sentences and Yes symmetric chest movement Extremity: RIGHT LOWER EXTREMITY: Yes hip joint (Dressings are dry and intact.) Right hip: Yes inspection (Minimal swelling or ecchymosis.) and Yes neurovascular exam (No evidence of DVT.) Neuro: COMMON NORMALS: patient oriented x3 SENSORIUM/ORIENTATION: Yes alert Psych: COMMON NORMALS: mental status grossly normal APPEARANCE: Yes grossly normal ATTITUDE: Yes calm and Yes engaged ATTENTION/CONCENTRATION: Yes attention grossly intact Skin: COMMON NORMALS: no rashes or lesions noted GENERAL SKIN EXAM: no rashes or lesions noted Urinary Catheter Management: Hardy: Cath Placed During This Visit: yes, but has since been removed by the nurse Reason for Continuing Indwelling Catheter: Decision to DC Catheter Urinary Catheter Date of Insertion: 11/27/23 Urinary Catheter Time of Insertion: 18:56 Date Urinary Catheter Removed: 11/28/23 Time Urinary Catheter Discontinued: 09:50 Data 11/28/23 04:58 11/28/23 04:58 A&P Assessment and plan (1) Closed intertrochanteric fracture of right hip: Lexis is a 78-year-old, female patient, who presented to the hospital after a trip and fall at home. She noted over the day, her pain became worse, and she presented to the emergency department where she was found to have a right femoral intratrochanteric hip fracture. She underwent surgical intervention last evening. She is doing well following this. Plans are that she can be weightbearing as tolerated. She will likely return to her living situation where she has a caregiver on a regular basis. She is in agreement with this plan. She will require an additional day of rehabilitation in preparation for going home. The patient will be weightbearing as tolerated and will follow-up with me in approximately 3 weeks. Qualifiers: Encounter type: initial encounter Fracture alignment: nondisplaced Qualified Code(s): S72.144A - Nondisplaced intertrochanteric fracture of right femur, initial encounter for closed fracture Attestations 2 Medical Necessity Statement*: Ongoing rehabilitation following right hip fracture Coding Level of Care Code Acute Code for Chg Fwd Diagnoses Closed nondisplaced intertrochanteric fracture of right femur, initial encounter S72.144A Encounter type: initial encounter Fracture alignment: nondisplaced
[2023-11-28] MEDS: budesonide 0.5 mg/2 mL Neb INHALATION (20:34)
[2023-11-28] MEDS: trazodone 150 mg Tablet PO (20:58)
[2023-11-28] MEDS: ropinirole 0.25 mg Tablet 0.5 MG PO (20:58)
[2023-11-29] VITALS (7 sets, daily range): BP systolic 110–121; BP diastolic 73–75; PULSE 73–96; RESP 16–18; TEMP 36.4–36.6; O2SAT 90–98
[2023-11-29 03:59] LABS: Basophils % 0.1 %; Eosinophils % 0.1 %; Hematocrit 31.9 % (36-47); Lymphocytes # 0.9 10^3/uL (0.8-4.8); Lymphocytes % 7.4 %; Mean Corpuscular HGB Conc 32.3 g/dL (30-55); Mean Corpuscular Hemoglobin 31.3 pg (27-33); Mean Platelet Volume 10.9 fL (7.4-10.4); Monocytes # 0.9 10^3/uL (0.2-0.9); Monocytes % 8.1 %; Neutrophils # 9.66 10^3/uL (1.8-7.7); Neutrophils % 83.6 %; Nucleated Red Blood Cells % 0 %; Platelet Count 155 10^3/cmm (157-399); Red Blood Count 3.29 10^6/uL (3.85-5.65); Red Cell Distribution Width 14.6 % (12.1-15.1); White Blood Count 11.55 10^3/uL (3.29-11.43)
[2023-11-29 04:32] LABS: Alanine Aminotransferase 17 U/L (0-33); Albumin Level 3.1 g/dL (3.5-5.2); Alkaline Phosphatase 82 U/L (35-105); Anion Gap 12.9 (5-19); Aspartate Amino Transferase 31 U/L (0-32); Blood Urea Nitrogen 30 mg/dL (8-23); Calcium 7.8 mg/dL (8.5-10.5); Carbon Dioxide 22 mmol/L (22-29); Chloride 103 mmol/L (98-107); Creatinine Clr Calc Pharmacy 50.5698; Globulin 2.2 g/dL (1.3-4.6); Glucose 141 mg/dL (65-115); Magnesium 1.8 mg/dL (1.7-2.3); Osmolality Calculated 287 mOsm/kg (285-295); Phosphorus 3.4 mg/dL (2.5-4.5); Potassium 3.9 mmol/L (3.5-5.1); Sodium 134 mmol/L (136-145); Total Bilirubin 0.2 mg/dL (0.15-1.2); Total Protein 5.3 g/dL (6.6-8.7)
[2023-11-29] MEDS: budesonide 0.5 mg/2 mL Neb INHALATION (08:01)
[2023-11-29] MEDS: albuterol 2.5 mg/3 mL Neb INHALATION (08:01)
[2023-11-29] MEDS: roflumilast 500 mcg Tablet PO (08:55)
[2023-11-29] MEDS: doxepin 50 mg Capsule PO (08:55)
[2023-11-29] MEDS: citalopram 20 mg Tablet PO (08:55)
[2023-11-29] MEDS: metoprolol succinate ER (24 HR) 50 mg Tablet PO (08:55)
[2023-11-29] MEDS: aspirin 325 mg EC Tablet PO (08:55)
[2023-11-29] MEDS: oxyCODONE 5 mg IR Tab/Cap PO (08:55)
--- NOTE | 2023-11-29 10:48 | PM.DCS ---
Discharge Providers Date of Admission: 11/27/23 19:03 Date of Discharge: November 29, 2023 Attending Provider at Admission: Hesham Mark MD Attending Provider at Discharge: Hesham Mark MD Primary Care Provider: Valorie Kathleen Diagnoses at Discharge Discharge Diagnosis (1) Closed intertrochanteric fracture of right hip: Status: Acute Qualifiers: Encounter type: initial encounter Fracture alignment: nondisplaced Qualified Code(s): S72.144A - Nondisplaced intertrochanteric fracture of right femur, initial encounter for closed fracture Reason for Visit Reason for Visit: fall Hospital Course Hospital Course Lexis Montaño is a 78 year old female atrial fibrillation, not on anticoagulation, history of COPD, asthma, depression, GERD, hypertension, hyperlipidemia, who presents [facility] for fall, patient tells me that she lives at home by herself, she tells me that she has a loose fitting shoe, when she stepped out of the elevator, she tripped on her shoe, and fell, no significant head trauma, no loss of consciousness, patient was diagnosed with a hip fracture, she is adamant that she does not take a blood thinner for atrial fibrillation, she takes aspirin and she has not taken the aspirin in a few days, denies any any chest pain, no palpitations, no shortness of breath no history of CAD, no history of stenting, no history of stroke, no history of diabetes, denies a history of smoking Patient presented to [facility] for hip fracture, status post open reduction internal fixation with right intertrochanteric hip fracture, received pain control, PT OT as inpatient. I had a extensive discussion with patient, about her fall risk, I strongly recommend for her to go to a [facility] facility, discussed morbidity and mortality associated with falls, she voiced understanding, all questions answered, declined long-term stay. Patient wants to be discharged home, seen by physical therapy as inpatient, she tells me that she has enough help at home her son and her girlfriend help her out, will see about potentially setting up home health care for her. She was discharged on oxycodone for pain control to be used sparingly for pain, and aspirin 325 mg for DVT prophylaxis. For her atrial fibrillation, patient is not on anticoagulation, due to history of spontaneous splenic bleed with oral anticoagulation, history of GI bleed with hemorrhagic gastritis, he is on aspirin 81 mg which will be held for the next month as she gets aspirin 325 for DVT prophylaxis, resume thereafter 81 mg -Please use oxycodone sparingly for pain, do not drive or operate heavy machinery or drink while taking medication ? Please continue aspirin 325 mg once daily for DVT prophylaxis for the next month, stopped aspirin 325 mg thereafter and switch to 81 mg for your atrial fibrillation ? Please follow-up with cardiology in the next week, next ?follow-up with Dr. Bravo -If you have any recurrent falls please go to the emergency room - see your primary care provider -In the next week, Physical Exam Const: COMMON NORMALS: no acute distress and patient oriented x3 Resp: COMMON NORMALS: normal respiratory effort, No retractions, No use of accessory muscles and clear to auscultation bilaterally AUSCULTATION: clear to auscultation bilaterally Cardio: COMMON NORMALS: regular rate, regular rhythm, S1 normal heart sound present and S2 normal heart sound present RATE: regular rate RHYTHM: regular rhythm HEART SOUNDS: S1 normal heart sound present and S2 normal heart sound present GI: COMMON NORMALS: Normal to inspection, nondistended, normoactive bowel sounds present and non-tender Extremity: COMMON NORMALS: no pedal edema Neuro: COMMON NORMALS: patient oriented x3 Psych: COMMON NORMALS: mental status grossly normal Urinary Catheter Management: Hardy: Cath Placed During This Visit: yes, but has since been removed by the nurse Reason for Continuing Indwelling Catheter: Decision to DC Catheter Urinary Catheter Date of Insertion: 11/27/23 Urinary Catheter Time of Insertion: 18:56 Date Urinary Catheter Removed: 11/28/23 Time Urinary Catheter Discontinued: 09:50 Discharge Data Studies Completed and Pending Completed Studies During Hospitalization Category Date Time Status XR hip RT 2-3V wo/w pel* [id number] Routine Exams 11/27/23 21:00 Completed XR hip RT 2-3V wo/w pel* [id number] Stat Exams 11/27/23 16:51 Completed Pending at discharge Category Date Time Status Complete Blood Count w/Auto AM LABS Lab 11/30/23 04:00 Ordered Comprehensive Metabolic Panel AM LABS Lab 11/30/23 04:00 Ordered Magnesium AM LABS Lab 11/30/23 04:00 Ordered Phosphorus AM LABS Lab 11/30/23 04:00 Ordered Laboratory Results WBC 11.55 10^3/uL (3.29-11.43) H 11/29/23 02:41 RBC 3.29 10^6/uL (3.85-5.65) L 11/29/23 02:41 Hgb 10.30 g/dL (11.27-16.99) L 11/29/23 02:41 Hct 31.9 % (36-47) L 11/29/23 02:41 MCV 97.0 fl (85-98) 11/29/23 02:41 MCH 31.3 pg (27-33) 11/29/23 02:41 MCHC 32.3 g/dL (30-55) 11/29/23 02:41 RDW 14.6 % (12.1-15.1) 11/29/23 02:41 Plt Count 155 10^3/cmm (157-399) L 11/29/23 02:41 MPV 10.9 fL (7.4-10.4) H 11/29/23 02:41 Neut % (Auto) 83.6 % 11/29/23 02:41 Lymph % (Auto) 7.4 % 11/29/23 02:41 Forrest % (Auto) 8.1 % 11/29/23 02:41 Eos % (Auto) 0.1 % 11/29/23 02:41 Baso % (Auto) 0.1 % 11/29/23 02:41 Neut # (Auto) 9.66 10^3/uL (1.8-7.7) H 11/29/23 02:41 Lymph # (Auto) 0.9 10^3/uL (0.8-4.8) 11/29/23 02:41 Forrest # (Auto) 0.9 10^3/uL (0.2-0.9) 11/29/23 02:41 Eos # (Auto) 0.0 10^3/uL (0.0-0.8) 11/29/23 02:41 Baso # (Auto) 0.0 10^3/uL (0.0-0.1) 11/29/23 02:41 Nucleated RBC % (auto) 0 % 11/29/23 02:41 Nucleated RBCs # 0.0 /100WBC 11/29/23 02:41 PT 13.80 SECONDS (12.1-14.9) 11/27/23 18:27 INR 1.02 (0.8-1.2) 11/27/23 18:27 Sodium 134 mmol/L (136-145) L 11/29/23 02:41 Potassium 3.9 mmol/L (3.5-5.1) 11/29/23 02:41 Chloride 103 mmol/L (98-107) 11/29/23 02:41 Carbon Dioxide 22 mmol/L (22-29) 11/29/23 02:41 Anion Gap 12.9 (5-19) 11/29/23 02:41 BUN 30 mg/dL (8-23) H 11/29/23 02:41 Creatinine 1.0 mg/dL (0.5-0.9) H 11/29/23 02:41 GFR Calculation Not Reportable 11/29/23 02:41 Glucose 141 mg/dL (65-115) H 11/29/23 02:41 Estimat Average Glucose 108 11/27/23 18:27 Hemoglobin A1c 5.4 % (4.0-6.0) 11/27/23 18:27 Calculated Osmolality 287 mOsm/kg (285-295) 11/29/23 02:41 Lactic Acid 1.5 mmol/L (0.5-2.2) 11/27/23 18:27 Calcium 7.8 mg/dL (8.5-10.5) L 11/29/23 02:41 Phosphorus 3.4 mg/dL (2.5-4.5) 11/29/23 02:41 Magnesium 1.8 mg/dL (1.7-2.3) 11/29/23 02:41 Total Bilirubin 0.2 mg/dL (0.15-1.2) 11/29/23 02:41 AST 31 U/L (0-32) 11/29/23 02:41 ALT 17 U/L (0-33) 11/29/23 02:41 Alkaline Phosphatase 82 U/L (35-105) 11/29/23 02:41 NT-Pro-B Natriuret Pep 1893 pg/mL (0-450) H 11/27/23 18:27 Total Protein 5.3 g/dL (6.6-8.7) L 11/29/23 02:41 Albumin 3.1 g/dL (3.5-5.2) L 11/29/23 02:41 Globulin 2.2 g/dL (1.3-4.6) 11/29/23 02:41 Triglycerides 71 mg/dL (0-150) 11/27/23 18:27 Cholesterol 154 mg/dL (0-200) 11/27/23 18:27 LDL Cholesterol, Calc 78 mg/dL (50-129) 11/27/23 18: HDL Cholesterol 62 mg/dL (60-100) 11/27/23 18: LDL/HDL Ratio 1.26 RATIO (0.00-3.22) 11/27/23 18: Cholesterol/HDL Ratio 2.48 mg/dL (0.0-4.40) 11/27/23 18: Procalcitonin 0.10 ng/mL (0-0.5) 11/27/23 18: TSH 3.71 uIU/mL (0.27-4.20) 11/27/23 18:27 Urine Color Yellow (Yellow) 11/27/23 18:54 Urine Appearance Clear (CLEAR) 11/27/23 18:54 Urine pH 6.5 (5-7) 11/27/23 18:54 Ur Specific [place] 1.015 (1.005-1.030) 11/27/23 18:54 Urine Protein Neg (Negative) 11/27/23 18:54 Urine Glucose (UA) Norm (Normal) 11/27/23 18:54 Urine Ketones Negative (Negative) 11/27/23 18:54 Urine Blood Neg (Negative) 11/27/23 18:54 Urine Nitrate Negative (Negative) 11/27/23 18:54 Urine Bilirubin Neg (Negative) 11/27/23 18:54 Urine Urobilinogen Norm mg/dL (Negative) 11/27/23 18:54 Ur Leukocyte Esterase Negative (Negative) 11/27/23 18:54 Vitals Last Vital Signs Temp 97.5 F L 11/29/23 07:56 Pulse 96 11/29/23 08:11 Resp 16 11/29/23 08:03 BP 117/74 11/29/23 07:56 Pulse Ox 94 11/29/23 08:03 O2 Del Method Nasal Cannula 11/29/23 07:56 O2 Flow Rate 2 11/28/23 05:00 Discharge Plan Discharge Patient Disposition: Home Condition: Stable Prescriptions: New oxycodone 10 mg tablet 5 - 10 mg PO Q4H PRN (Reason: Moderate To Severe Pain) 7 Days Qty: 30 0RF trazodone 150 mg Tablet 150 mg PO BEDTIME 30 Days Qty: 30 0RF aspirin 325 mg Tablet,Delayed Release (Dr/Ec) 325 mg PO DAILY 30 Days Qty: 30 0RF Continued ipratropium bromide 0.02 % solution 2.5 ml inhalation BID PRN (Reason: Shortness Of Breath) oxybutynin chloride 5 mg tablet 5 mg PO BID Qty: 60 6RF doxepin 50 mg capsule 50 mg PO QPM metoprolol succinate 50 mg tablet extended release 24 hr 50 mg PO DAILY alendronate 70 mg tablet 70 mg PO Q7D citalopram 20 mg tablet 20 mg PO QAM triamcinolone acetonide 0.025 % cream 1 applic TOPICAL DAILY ropinirole 0.5 mg tablet 0.5 mg PO BEDTIME roflumilast [Daliresp] 500 mcg tablet 500 mcg PO QPM omeprazole 20 mg capsule,delayed release(DR/EC) 20 mg PO DAILY Held amlodipine 10 mg tablet 10 mg PO DAILY Hold Instructions: Resume on 12/01/23. Discontinued aspirin [Adult Aspirin Regimen] 81 mg tablet,delayed release (DR/EC) 81 mg PO QPM nabumetone 750 mg tablet 750 mg PO BID Discharge Orders: Discharge Order (Routine); Ordered 11/29/23 Ordered By: Hesham Mark Other Ambulatory Orders: DME: [employer] (Order) Location: None Selected Ordered By: Hesham Mark Referrals: Joni Jenkins M.D [Physician] - 4-7 days June Bravo MD [Physician] - 3 weeks Valorie Kathleen PA [Primary Care Provider] - Discharge Diet: Cardiac Discharge Activity: Use walker/crutches as instructed and As per PT/OT instructions Patient Instructions: Opioid Safety Activity Restrictions/Additional Instructions: Maintain current dressing. You may weight-bear as tolerated working with physical therapy. You may shower, but do not soak your leg in water. -Please use oxycodone sparingly for pain, do not drive or operate heavy machinery or drink while taking medication ? Please continue aspirin 325 mg once daily for DVT prophylaxis for the next month, stopped aspirin 325 mg thereafter and switch to 81 mg for your atrial fibrillation ? Please follow-up with cardiology in the next week, next ?follow-up with Dr. Bravo -If you have any recurrent falls please go to the emergency room - see your primary care provider -In the next week, Discharge Attestations Time Spent in Discharge Care*: greater than 30 min Quality Metrics Clinical Quality Measures [ No reported AMI, CVA or VTE this stay] Coding Level of Care Code 94442 Total time (in minutes) for Discharge: 45 Diagnoses Closed nondisplaced intertrochanteric fracture of right femur, initial encounter S72.144A Encounter type: initial encounter Fracture alignment: nondisplaced
== END 2023-11-29 11:34 | disposition home or self-care (01) | DRG 481 ==
LOC: ER 18:05 → MEDSURG 19:04
PROVIDERS: Specialist; Admitting Provider Family Medicine; Emergency Provider Emergency Medicine; PCP Physician Assistant; Visit Provider Family Medicine
PROC: (CPT 27245; principal; 2023-11-27 21:00)
DX: S72.141A Displaced intertrochanteric fracture of right femur, initial encounter for closed fracture (principal); I48.20 Chronic atrial fibrillation, unspecified; W18.30XA Fall on same level, unspecified, initial encounter; Z79.82 Long term (current) use of aspirin; I10 Essential (primary) hypertension; F32.A Depression, unspecified; K21.9 Gastro-esophageal reflux disease without esophagitis; J44.89 Other specified chronic obstructive pulmonary disease; E87.70 Fluid overload, unspecified; G25.81 Restless legs syndrome
CPT/HCPCS: 36415; 51702; 73502; 76000; 80053; 80061; 81003; 83036; 83605; 83735; 83880; 84100; 84145; 84443; 85025; 85610; 94640; 94664; 96365; 96372; 97110; 97116; 97161; 97167; 97530; 97535; 99285; C1713; C9113; J0131; J0330; J0690; J1650; J1940; J2704; J3010; J3490; J7030; J7613; J7626

== ENCOUNTER → 2023-12-15 14:29 | Outpatient (BNVA) | payer MEDICARE, MEDICAID, SELFPAY | PROVIDERS: PCP Physician Assistant; Visit Provider Nurse Practitioner | DX: Z98.890 Other specified postprocedural states; S72.144D Nondisplaced intertrochanteric fracture of right femur, subsequent encounter for closed fracture with routine healing; X58.XXXD Exposure to other specified factors, subsequent encounter | CPT/HCPCS: 73502; 99024 ==

== ENCOUNTER → 2024-02-23 11:14 | Outpatient (BNVA) | payer MEDICARE, MEDICAID, SELFPAY | PROVIDERS: PCP Physician Assistant; Visit Provider Specialist | DX: Z98.890 Other specified postprocedural states (principal); Z87.81 Personal history of (healed) traumatic fracture | CPT/HCPCS: 73502; 99024 ==

== ENCOUNTER → 2024-06-02 14:55 | Outpatient (BNVA) | payer MEDICARE, MEDICAID, SELFPAY | PROVIDERS: PCP Physician Assistant; Visit Provider Nurse Practitioner | DX: M70.61 Trochanteric bursitis, right hip (principal); Z98.890 Other specified postprocedural states; Z87.81 Personal history of (healed) traumatic fracture | CPT/HCPCS: 20610; 73502; 99214; J1100; J2795; J3301 ==

== ENCOUNTER 2024-07-15 14:47 | Emergency (ER) | payer MEDICARE, MEDICAID, SELFPAY ==
[2024-07-15 14:44] VITALS: BP 166/82; PULSE 91; TEMP 36.9; O2SAT 97
--- NOTE | 2024-07-15 15:01 | XRR_ITS ---
PROCEDURE INFORMATION: Exam: XR Right Knee Exam date and time: 07/15/2024 3:58 PM Age: 79 years old Clinical indication: Pain; Knee; Right; Additional info: Atraumatic pain and swelling to anterior knee TECHNIQUE: Imaging protocol: Radiologic exam of the right knee. Views: 3 views. COMPARISON: CR XR knees AP WB w RT lmt ORTH 01/01/2023 3:27 PM FINDINGS: Bones/joints: Marked narrowing of the lateral tibiofemoral compartment.Osteopenia is present. Articular osteophytes are present. Moderate joint effusion. Soft tissues: Vascular calcifications noted in the soft tissues. XR/XR knee RT 3V* [id number] IMPRESSION: Interval appearance of moderate joint effusion.
--- NOTE | 2024-07-15 15:11 | ED_ITS ---
HPI - Extremity Problem General: Chief complaint: Extremity Injury, Lower Stated complaint: RIGHT LEG PAIN Source: patient Mode of arrival: EMS Limitations: other (Hard of hearing) History of Present Illness: Patient is a 79-year-old female who presents the emergency department by ambulance due to atraumatic right knee pain worsening over the past couple of days. She is denying any trauma or falls. She is noting the pain is too severe that she cannot walk. Swelling noted to the anterior knee, which is where she is also reporting the pain. Denies any blood thinner use or history of blood clots. Denies any calf pain, distal paresthesias, numbness/weakness, or other symptoms. She notes that the pain has been making her nauseous, and the pain is a throbbing sensation that she can feel even at rest. She does have a history of arthritis as well as fractures to that right hip, among other significant past medical history. MD Complaint: joint swelling and joint pain Onset (ago): day(s) Pain Consistency: constant Location: right and knee Quality: other (Throbbing) Radiation: none Relieving factors: nothing Exacerbating factors: range of motion, weight bearing and walking Associated symptoms: Deny chest pain, fever(s) or rash Related Data Home Medications Medication Instructions Recorded Confirmed alendronate 70 mg tablet 70 mg PO Q7D 11/04/19 06/02/24 citalopram 20 mg tablet 20 mg PO QAM 11/04/19 06/02/24 doxepin 50 mg capsule 50 mg PO QPM 11/04/19 06/02/24 metoprolol succinate 50 mg 50 mg PO DAILY 11/04/19 06/02/24 tablet,extended release 24 hr roflumilast 500 mcg tablet 500 mcg PO QPM 11/04/19 06/02/24 (Daliresp) ropinirole 0.5 mg tablet 0.5 mg PO BEDTIME 11/04/19 06/02/24 triamcinolone acetonide 0.025 % 1 applic topical DAILY 11/04/19 06/02/24 topical cream ipratropium bromide 0.02 % 2.5 ml inhalation BID PRN 01/04/21 06/02/24 solution for inhalation Shortness Of Breath amlodipine 10 mg tablet 10 mg PO DAILY 11/28/23 06/02/24 omeprazole 20 mg capsule,delayed 20 mg PO DAILY 11/28/23 06/02/24 release Previous Rx's Medication Instructions Recorded oxybutynin chloride 5 mg tablet 5 mg PO BID #60 tabs 01/15/21 Rollator #1 ea 12/04/23 Rolling Walker with seat #1 ea 12/15/23 clobetasol 0.05 % topical ointment 1 applic topical BID PRN lichen 12/23/23 sclerosis #15 grams ketorolac 10 mg tablet 10 mg PO Q8H PRN pain #15 tabs 07/15/24 prednisone 20 mg tablet 40 mg (2 x 20 mg) PO ONCE 5 days 07/15/24 #10 tabs Allergies Allergy/AdvReac Type Severity Reaction Status Date / Time tetanus toxoid, adsorbed Allergy Unknown Verified 07/15/24 14:50 Review of Systems General: Reports: 10 or more systems reviewed and unremarkable except in HPI and below Const: Denies: fever(s) or chills Card: Denies: chest pain Resp: Denies: dyspnea or productive cough GI: Denies: abdominal pain, nausea, vomiting or diarrhea : Denies: flank pain Musc: Reports: joint pain, joint swelling and limited range of motion; Denies: neck pain, back pain, extremity pain, extremity swelling, joint redness, joint warmth or muscle weakness Skin/Breast: Denies: rash Neuro: Denies: headache(s), numbness in extremities or weakness in extremities PFSH ED PFSH: Medical History Greater trochanteric bursitis of right hip Fall at home Closed intertrochanteric fracture of right hip History of restless legs syndrome Afib Depression History of [id number] syndrome Osteoporosis COPD (chronic obstructive pulmonary disease) Hyperlipidemia GERD (gastroesophageal reflux disease) Lung disease Hx of malignant neoplasm of colon Hx of basal cell carcinoma HTN (hypertension) Asthma Chronic back pain Coronary artery disease Arthritis Hx of myocardial infarction Recurrent UTI Overactive bladder Surgical History Status post open reduction and internal fixation (ORIF) of fracture Date of procedure: November 28, 2023. Pre-op diagnosis: Right intertrochanteric hip fracture. Procedure done: Open reduction internal fixation right intertrochanteric hip fracture. Implants: [employer] gamma 3 trochanteric nail size 11 mm x 180 mm x 125 degrees, a gamma 3 lag screw size 10.5 mm x 85 mm, and a distal locking screw size 5 mm x 27.5 mm. Surgeon: June Bravo MD. Hx of repair of rotator cuff Hx of eye surgery Hx of rhinoplasty History of partial surgical removal of colon 10in removed Hx of appendectomy Hx of cholecystectomy Hx of hysterectomy one ovary spared. Performed due to heavy bleeding. Hx of knee surgery Hx of tonsillectomy Family History Mother Cancer Sister Cancer Chronic kidney disease (CKD) breast --- younger than 50 at diagnosis Grandmother Cancer Father CAD (coronary artery disease) Diabetes Brother CAD (coronary artery disease) Grandfather Diabetes Social History Smoking and tobacco/nicotine status: never used tobacco/nicotine Alcohol intake: never Substance/Drug Use: never Adopted: No Caregiver/support person: No Marital status: / Current occupational status: retired Current gender identity: Female Physical Exam Const: COMMON NORMALS: no acute distress, patient oriented x3, alert and well nourished EXAM LIMITATIONS: physical limitations (Patient very hard of hearing) GENERAL APPEARANCE: cooperative HENMT: COMMON NORMALS: normocephalic and atraumatic HEAD & SCALP: normocephalic and atraumatic Neck/C-Spine: COMMON NORMALS: full ROM, supple and no meningeal signs Resp: COMMON NORMALS: normal respiratory effort, No use of accessory muscles and clear to auscultation bilaterally AUSCULTATION: clear to auscultation bilaterally Cardio: COMMON NORMALS: regular rate and regular rhythm RATE: regular rate RHYTHM: regular rhythm Extremity: NARRATIVE EXTREMITY EXAM: Right knee is diffusely swollen and there is tenderness to palpation of the anterior right knee joint. Bilaterally, her DP/PT pulses are weakened but appreciable with Doppler ultrasound. No calf tenderness or swelling. No skin color changes. The joint does not feel hot to the touch. Limited range of motion passively and actively secondary to the pain and swelling. Does not attempt to bear weight. No appreciable joint effusion at this time. Neuro: COMMON NORMALS: patient oriented x3, moves all extremities, no focal motor deficits and no sensory deficits noted SENSORIUM/ORIENTATION: Yes alert MENINGEAL SIGNS: Yes no meningeal signs Skin: COMMON NORMALS: no rashes or lesions noted GENERAL SKIN EXAM: no rashes or lesions noted Course Vital Signs: Vital signs: Vital Signs Temperature 98.4 F 07/15/24 14:44 Pulse Rate 92 07/15/24 20:34 Respiratory Rate 16 07/15/24 17:50 Blood Pressure 182/82 07/15/24 20:34 Pulse Oximetry 96 07/15/24 20:34 Oxygen Delivery Me thod Room Air 07/15/24 17:50 MDM - Extremity (Nontraumatic) Medical Decision Making Patient called the ambulance for atraumatic right knee pain. History of os teoarthritis. She is very hard of hearing on exam, but she denies any injury. An x-ray did show a joint effusion, which I believe at this time to be secondary to her chronic osteoarthritis. The knee was not hot to the touch and she had no systemic symptoms making think of a septic joint. However did have a conversation with her such that if she continues to have worsening pain or swelling or other concerning symptoms to return for reevaluation. At this time we will treat at home as she is noting complete relief of her pain after receiving medications here. I spoke with her primary care and she agreed with this plan as well. Patient will be discharged home. Lab Data Radiology Impressions Knee X-Ray 07/15/24 15:01 IMPRESSION: Interval appearance of moderate joint effusion. All radiology interpretation(s) finalized by discharge Discharge Plan Discharge Patient Disposition: Home Clinical Impression: Osteoarthritis Qualifiers: Osteoarthritis location: knee Osteoarthritis type: primary Laterality: right Qualified Code(s): M17.11 - Unilateral primary osteoarthritis, right knee Condition: Stable Prescriptions: New prednisone 20 mg tablet 40 mg PO ONCE 5 Days Qty: 10 0RF ketorolac 10 mg tablet 10 mg PO Q8H PRN (Reason: pain) Qty: 15 0RF No Action ipratropium bromide 0.02 % solution 2.5 ml inhalation BID PRN (Reason: Shortness Of Breath) oxybutynin chloride 5 mg tablet 5 mg PO BID Qty: 60 6RF (DME) Rolling Walker with seat See Rx Instructions .Route .MEDSUPPLY Qty: 1 0RF Rx Instructions: As directed (DME) Rollator See Rx Instructions .Route .MEDSUPPLY Qty: 1 0RF Rx Instructions: As directed clobetasol 0.05 % ointment 1 applic topical BID PRN (Reason: lichen sclerosis) Qty: 15 0RF doxepin 50 mg capsule 50 mg PO QPM metoprolol succinate 50 mg tablet extended release 24 hr 50 mg PO DAILY alendronate 70 mg tablet 70 mg PO Q7D citalopram 20 mg tablet 20 mg PO QAM triamcinolone acetonide 0.025 % cream 1 applic TOPICAL DAILY ropinirole 0.5 mg tablet 0.5 mg PO BEDTIME roflumilast [Daliresp] 500 mcg tablet 500 mcg PO QPM amlodipine 10 mg tablet 10 mg PO DAILY Hold Instructions: Resume on 12/01/23. omeprazole 20 mg capsule,delayed release(DR/EC) 20 mg PO DAILY Discharge Orders: Discharge ED (Routine); Ordered 07/15/24 Ordered By: Greg Graf Referrals: Valorie Kathleen PA [Primary Care Provider] - Patient Instructions: Osteoarthritis (ED) Activity Restrictions/Additional Instructions: Steroids as prescribed. Toradol for pain. Please elevate the extremity as discussed and apply ice for the swelling. Also as discussed, if you begin to have any fevers, vomiting, or other signs of illness please return to the emergency department for further workup. Follow-up with primary care otherwise. Coding Level of Care Code ED Feeder Tender for Ann Plascencia
[2024-07-15 15:24] VITALS: BP 158/83; PULSE 93; RESP 18; O2SAT 97
[2024-07-15] MEDS: ketorolac 60 mg/2 mL INJ IM (15:41)
[2024-07-15] MEDS: dexamethasone 10 mg/mL INJ IM (15:41)
[2024-07-15 16:16] VITALS: BP 150/75; PULSE 88; RESP 18; O2SAT 97
[2024-07-15 17:50] VITALS: BP 163/76; PULSE 89; RESP 16; O2SAT 97
[2024-07-15 20:34] VITALS: BP 182/82; PULSE 92; O2SAT 96
== END 2024-07-15 20:15 | disposition home or self-care (01) ==
PROVIDERS: Emergency Provider Physician Assistant; PCP Physician Assistant
DX: M17.11 Unilateral primary osteoarthritis, right knee (principal); Z85.828 Personal history of other malignant neoplasm of skin; Z85.038 Personal history of other malignant neoplasm of large intestine; I25.10 Atherosclerotic heart disease of native coronary artery without angina pectoris; J44.9 Chronic obstructive pulmonary disease, unspecified; I25.2 Old myocardial infarction; I10 Essential (primary) hypertension
CPT/HCPCS: 73562; 96372; 99284; J1100; J1885

== ENCOUNTER → 2025-05-19 09:00 | Outpatient (BNVA) | payer MEDICARE, MEDICAID, SELFPAY | PROVIDERS: PCP Physician Assistant; Visit Provider Student in an Organized Health Care Education/Training Program | DX: Z12.11 Encounter for screening for malignant neoplasm of colon (principal); R03.0 Elevated blood-pressure reading, without diagnosis of hypertension | CPT/HCPCS: 99203 ==